=== PATIENT | female | born 1980 | race Caucasian/White ===

== ENCOUNTER 2018-11-29 15:44 | Emergency (ER) | payer BC, SELFPAY ==
[2018-11-29 15:55] VITALS: BP 108/67; PULSE 87; RESP 17; TEMP 36.3; O2SAT 96
--- NOTE | 2018-11-29 17:24 | ED.RECABL ---
HPI - Recheck/Abnormal Lab/Rx General Chief Complaint: Recheck/Abnormal Lab/Rx Stated Complaint: STATES CENTRAL LINE BLEW Time Seen by Provider: 11/29/18 17:24 Source: patient Mode of arrival: ambulatory Limitations: no limitations History of Present Illness HPI narrative: 30-year-old female nonsmoker with history of Crohn's and left anterior chest tunneled catheter presents with the report of an obvious hole in the external tubing of the catheter which occurred this morning. She has a catheter because she requires TPN due to her Crohn's and the 2nd lumen is required secondary to her need for Cipro twice daily to treat an infection on her right foot. Her catheter was placed at [facility] by their surgeon on October 25. She denies any chest pain. She is not dizzy or weak or lightheaded. She has no fever or chills Returns today for: needs IV antibiotics Symptoms since prior visit: no new symptoms Associated symptoms: none Related Data Home Medications Medication Instructions Recorded Confirmed adalimumab [Humira Pen] 1 dose SUBCUT QWEEK 11/29/18 11/29/18 alprazolam 0.5 mg PO TID 11/29/18 11/29/18 alprazolam 1.5 mg PO BEDTIME 11/29/18 11/29/18 azathioprine 250 mg PO DAILY 11/29/18 11/29/18 budesonide 9 mg PO DAILY 11/29/18 11/29/18 diphenoxylate-atropine 2 tab PO QID PRN 11/29/18 11/29/18 epinephrine 0.3 mg IM PRN PRN 11/29/18 11/29/18 famotidine 20 mg PO BID 11/29/18 11/29/18 gabapentin 1,800 mg PO BEDTIME 11/29/18 11/29/18 gabapentin 900 mg PO BID 11/29/18 11/29/18 hyoscyamine sulfate 0.125 mg SUBLINGUAL TID PRN 11/29/18 11/29/18 ondansetron 8 mg TRANSLINGUAL QID 11/29/18 11/29/18 oxycodone 10 mg PO 8XD 11/29/18 11/29/18 pantoprazole 40 mg PO DAILY 11/29/18 11/29/18 prednisone 1 mg PO DAILY 11/29/18 11/29/18 promethazine 25 mg PO TID 11/29/18 11/29/18 scopolamine base [Transderm-Scop] 1 patch TOPICAL Q3D 11/29/18 11/29/18 sertraline 200 mg PO DAILY 11/29/18 11/29/18 sumatriptan 1 spray INTRANASAL .ONCE PRN 11/29/18 11/29/18 sumatriptan succinate 25 mg PO PRN PRN 11/29/18 ursodiol 600 mg PO BID 11/29/18 11/29/18 Allergies Allergy/AdvReac Type Severity Reaction Status Date / Time bee venom protein (honey bee) Allergy Verified 11/29/18 16:04 latex Allergy Verified 11/29/18 16:04 prochlorperazine AdvReac Mild Agitated Verified 11/29/18 16:04 [From Compazine] Review of Systems Constitutional Denies chills, Denies fever(s), Denies lethargy and Denies weakness Eyes Denies change in vision, Denies eye discharge, Denies irritation and Denies loss of vision ENT Ears, Nose, Mouth, and Throat: Denies change in voice, Denies neck pain and Denies sore throat Cardiovascular Denies chest pain, Denies irregular heart rhythm, Denies lightheadedness, Denies palpitations, Denies dyspnea, Denies dyspnea on exertion and Denies orthopnea Respiratory Denies cough, Denies dyspnea, Denies dyspnea on exertion and Denies wheezing Gastrointestinal Gastrointestinal: Denies abdominal pain, Denies change in bowel habits, Denies diarrhea, Denies nausea and Denies vomiting Genitourinary Denies hematuria, Denies flank pain, Denies urinary incontinence and Denies urinary urgency Musculoskeletal Denies neck pain Integumentary/Breasts Denies pruritus, Denies erythema, Denies rash and Denies wounds Neurologic Denies confusion, Denies loss of vision and Denies weakness Psychiatric Denies anxiety, Denies confusion, Denies depression, Denies homicidal ideation and Denies suicidal ideation Endocrine Denies palpitations Hematologic/Lymphatic Denies easy bruising Allergic/Immunologic Denies wheezing PFSH Social History Smoking Status: Former smoker Social History Smoking Status: Former smoker Exam Narrative Exam Narrative: GEN: AOx3 and in mild distress EYES: Pupils are equal, round, and reactive to light and accommodation. Extraoccular muscles are intact bilaterally. There is no subconjunctival hemorrhage or exudate. CHEST: Lungs are clear to auscultation bilaterally and free of wheezes, rales, or rhonchi. Heart rate is regular rhythm, there are no murmurs, clicks, rubs, or gallops. Tunneled catheter in left anterior chest without surrounding erythema, edema or obvious external problems. There is a rather large hole in 1 of the external to ooze. There is no chest wall tenderness. ABD: Abdomen is soft and nontender. There is no guarding or rebound. Bowel sounds are normal in all 4 quadrants. There is no mass or organomegaly. EXT: Full painless ROM of all extremities with no loss of sensation or strength. SKIN: Warm, pink, and dry. No erythema or rash Initial Vital Signs Initial Vital Signs: Vital Signs Temperature 97.4 F L 11/29/18 15:55 Pulse Rate 87 11/29/18 15:55 Respiratory Rate 17 11/29/18 15:55 Blood Pressure 108/67 11/29/18 15:55 Pulse Oximetry 96 11/29/18 15:55 Course Consultations Consultation #1: Discussion with our on-call general surgeon who states that to her knowledge we do not have appropriate devices here. Requests that we call [facility] given patient history there. Called to on-call general surgeon at [facility] whom after hearing the story recommends the patient contact her surgeon's office tomorrow morning and be seen for a revision of the catheter. Peripheral IV placed so patient can administer Cipro at home tonight, she understands TPN cannot be administered Vital Signs - 8 hr 11/29/18 15:55 11/29/18 18:34 Temperature 97.4 F L Pulse Rate 87 72 Respiratory Rate 17 Blood Pressure 108/67 Blood Pressure [Right Arm] 101/54 L Pulse Oximetry 96 99 Discharge Plan Departure Patient Disposition: Home Clinical Impression: Mechanical complication of tunneled cuffed central venous catheter without port Discharge Date/Time: 11/29/18 18:42 Interventions: ED Discharge Assessment Last Done: 11/29/18 18:41 Activity Restrictions/Additional Instructions: *You have been diagnosed with [tunneled catheter problem] *What to do: * call surgical office tomorrow for follow-up, I contacted the on-call surgeon this evening and they request that you call the office tomorrow for follow up. *Return to ER if you should have any new, worsening or concerning symptoms Prescriptions: No Action sumatriptan succinate 25 mg tablet 25 mg PO PRN PRN (Reason: Migraine Headache) RF: 0 diphenoxylate-atropine 2.5-0.025 mg tablet 2 tab PO QID PRN (Reason: Diarrhea) RF: 0 azathioprine 50 mg tablet 250 mg PO DAILY RF: 0 ondansetron 8 mg tablet,disintegrating 8 mg Translingual QID RF: 0 alprazolam 0.5 mg tablet 0.5 mg PO TID RF: 0 alprazolam 0.5 mg tablet 1.5 mg PO BEDTIME RF: 0 famotidine 20 mg tablet 20 mg PO BID RF: 0 prednisone 1 mg tablet 1 mg PO DAILY RF: 0 pantoprazole 40 mg tablet,delayed release (DR/EC) 40 mg PO DAILY RF: 0 hyoscyamine sulfate 0.125 mg tablet, sublingual 0.125 mg Sublingual TID PRN (Reason: Spasms) RF: 0 promethazine 25 mg tablet 25 mg PO TID RF: 0 ursodiol 300 mg capsule 600 mg PO BID RF: 0 gabapentin 300 mg capsule 900 mg PO BID RF: 0 gabapentin 300 mg capsule 1,800 mg PO BEDTIME RF: 0 budesonide 3 mg capsule,delayed,extend.release 9 mg PO DAILY RF: 0 epinephrine 0.3 mg/0.3 mL auto-injector 0.3 mg IM PRN PRN (Reason: Allergic Reaction) RF: 0 scopolamine base [Transderm-Scop] 1 mg over 3 days patch 3 day 1 patch topical Q3D RF: 0 sumatriptan 20 mg/actuation spray,non-aerosol 1 spray Intranasal .ONCE PRN (Reason: Migraine Headache) RF: 0 sertraline 50 mg tablet 200 mg PO DAILY RF: 0 Humira Pen 40 mg/0.8 mL pen injector kit 1 dose subcut QWEEK RF: 0 oxycodone 10 mg tablet 10 mg PO 8XD RF: 0
[2018-11-29 18:34] VITALS: BP 101/54; PULSE 72; O2SAT 99
== END 2018-11-29 18:42 | disposition home or self-care (01) ==
PROVIDERS: Emergency Provider Emergency Medicine
DX: T85.9XXA Unspecified complication of internal prosthetic device, implant and graft, initial encounter (principal)
CPT/HCPCS: 99282; 99283

== ENCOUNTER → 2019-01-10 15:40 | Outpatient (ROUT) | payer OTHER, SELFPAY ==
[2019-01-10 15:50] LABS: Add Manual Diff / Slide Review NO; Basophils Absolute Auto 0 /uL (0-100); Basophils Percent Auto 0.9 % (0-2); Eosinophils Absolute Auto 100 /uL (0-450); Eosinophils Percent Auto 1.9 % (2-4); Hematocrit 25.9 % (36-46); Hemoglobin 9.1 g/dL (12.0-16.0); Lymphocytes Absolute Auto 1600 /uL (1100-4500); Mean Corpuscular Hemoglobin 36.3 PG (26-34); Mean Corpuscular Volume 103.8 fL (80-100); Monocytes Absolute Auto 100 /uL (0-900); Monocytes Percent Auto 3.9 % (3-14); Neutrophils Absolute Auto 1600 /uL (1500-7000); Neutrophils Percent Auto 46.3 % (50-75); Platelet Count 230 X10^3/uL (150-400); Red Blood Cell Count 2.49 X10^6/uL (4.0-5.2); Red Cell Distribution Width 17.3 % (11.6-14.8); White Blood Cell Count 3.4 X10^3/uL (4.5-11.0)
[2019-01-10 16:33] LABS: Alanine Aminotransferase 16 IU/L (9-52); Albumin 3.8 g/dL (3.5-5.0); Albumin Globulin Ratio 1.5 (1.0-2.8); Alkaline Phosphatase 76 U/L (38-126); Aspartate Aminotransferase 16 IU/L (14-36); Bilirubin Total 0.6 mg/dL (0.2-1.3); Blood Urea Nitrogen 9 mg/dL (7-17); Calcium 8.5 mg/dL (8.4-10.2); Carbon Dioxide 26 mmol/L (22-32); Chloride 106 mmol/L (98-107); Estimated Glomerular Filt Rate > 60.0 mL/min (>60); Globulin 2.6 g/dL (1.7-4.1); Glucose 83 mg/dL (70-100); HEMOLYSIS < 15 (0-50); Magnesium 1.6 mg/dL (1.6-2.3); Phosphorous 3.7 mg/dL (2.5-4.5); Potassium 3.5 mmol/L (3.4-5.1); Sodium 140 mmol/L (137-145); Total Protein 6.4 g/dL (6.3-8.2)
== END ==
PROVIDERS: Visit Provider Family Medicine
DX: K50.00 Crohn's disease of small intestine without complications (principal); B95.62 Methicillin resistant Staphylococcus aureus infection as the cause of diseases classified elsewhere; A09 Infectious gastroenteritis and colitis, unspecified
CPT/HCPCS: 80053; 83735; 84100; 85025

== ENCOUNTER → 2019-01-25 14:17 | Outpatient (CLI) | payer BC, SELFPAY ==
[2019-01-25 15:31] LABS: Add Manual Diff / Slide Review NO; Basophils Absolute Auto 0 /uL (0-100); Basophils Percent Auto 0.6 % (0-2); Eosinophils Absolute Auto 0 /uL (0-450); Eosinophils Percent Auto 1.4 % (2-4); Hematocrit 29.6 % (36-46); Hemoglobin 10.3 g/dL (12.0-16.0); Lymphocytes Absolute Auto 1800 /uL (1100-4500); Lymphocytes Percent Auto 52.5 % (25-40); Mean Corpuscular HGB Conc 34.8 % (30-36); Mean Corpuscular Hemoglobin 36.7 PG (26-34); Mean Corpuscular Volume 105.7 fL (80-100); Monocytes Absolute Auto 100 /uL (0-900); Monocytes Percent Auto 3.2 % (3-14); Neutrophils Absolute Auto 1500 /uL (1500-7000); Neutrophils Percent Auto 42.3 % (50-75); Platelet Count 187 X10^3/uL (150-400); Red Blood Cell Count 2.81 X10^6/uL (4.0-5.2); Red Cell Distribution Width 17.1 % (11.6-14.8); White Blood Cell Count 3.5 X10^3/uL (4.5-11.0)
[2019-01-25 15:50] LABS: HEMOLYSIS < 15 (0-50); Iron 154 ug/dL (37-170)
[2019-01-25 15:51] LABS: Erythrocyte Sedimentation Rate 34 MM/HR (0-20)
[2019-01-25 15:57] LABS: C-Reactive Protein Quant < 0.5 mg/dL (<1.0)
[2019-01-25 16:04] LABS: Percent Iron Saturation 63 % (15-50); Total Iron Binding Capacity 244 ug/dL (265-497); Transferrin 197 mg/dL (206-381)
[2019-01-26 10:22] LABS: Alanine Aminotransferase 21 IU/L (9-52); Albumin 4.4 g/dL (3.5-5.0); Albumin Globulin Ratio 1.6 (1.0-2.8); Alkaline Phosphatase 84 U/L (38-126); Aspartate Aminotransferase 21 IU/L (14-36); BUN Creatinine Ratio 15.7 (6-22); Bilirubin Total 0.8 mg/dL (0.2-1.3); Blood Urea Nitrogen 11 mg/dL (7-17); Calcium 9.3 mg/dL (8.4-10.2); Carbon Dioxide 25 mmol/L (22-32); Chloride 103 mmol/L (98-107); Estimated Glomerular Filt Rate > 60.0 mL/min (>60); Globulin 2.8 g/dL (1.7-4.1); Glucose 91 mg/dL (70-100); HEMOLYSIS < 15 (0-50); Potassium 3.9 mmol/L (3.4-5.1); Sodium 141 mmol/L (137-145); Total Protein 7.2 g/dL (6.3-8.2)
[2019-01-26 11:09] LABS: Vitamin B12 234 pg/mL (239-931)
[2019-01-30 20:01] LABS: Calprotectin, Stool 31.4 mcg/g
[2019-01-31 01:03] LABS: Methylmalonic Acid 312 nmol/L (87-318)
== END ==
PROVIDERS: PCP Family Medicine; Visit Provider Internal Medicine Gastroenterology
DX: D53.9 Nutritional anemia, unspecified (principal); L97.519 Non-pressure chronic ulcer of other part of right foot with unspecified severity; K52.9 Noninfective gastroenteritis and colitis, unspecified
CPT/HCPCS: 36415; 80053; 82607; 82728; 83540; 83550; 83921; 83993; 85025; 85651; 86140

== ENCOUNTER 2019-03-14 10:42 | Observation (INO) | payer BC, SELFPAY ==
[2019-03-14] VITALS (17 sets, daily range): BP systolic 98–128; BP diastolic 45–76; PULSE 54–83; RESP 11–24; TEMP 36.1–37.2; O2SAT 97–100; BMI 28.0
--- NOTE | 2019-03-14 11:04 | ED.GENADULT ---
HPI - General Adult General Chief complaint: Dizziness Stated complaint: Low H&H Time Seen by Provider: 03/14/19 10:44 Source: patient and old records reviewed Mode of arrival: ambulatory Limitations: no limitations History of Present Illness HPI narrative: This is a 38-year-old female was sent to the emergency department for low hemoglobin. She had her labs drawn yesterday and was referred to have a hemoglobin of 5 with hematocrit of 15. Patient states that she has had 2 iron infusions as well as 3 shots of B12 over the last several weeks. She has a Ayoub catheter and receives TPN secondary to Crohn's and bowel stricture as well as gastroparesis. Patient has not noticed any rectal bleeding, no melena or bright red blood, no hematuria, no other sources of bleeding or vaginal bleeding. Patient does note that she sometimes bruises very easily. She has felt significantly weaker and more fatigued over the last 5 days. She gets a little bit lightheaded when she is up and ambulatory and performing actions. She has had some slight nausea which is chronic. No vomiting. She denies any chest pain pressure or shortness of breath. She had a supply person the [facility] but has been transitioning her care to Dr. Parmar who is a supply person here [facility] and originally through [place]. She had a port which had some complications and was replaced with a Ayoub catheter on the other side of her chest. Related Data Home Medications Medication Instructions Recorded Confirmed adalimumab [Humira Pen] 1 dose SUBCUT QWEEK 11/29/18 03/14/19 alprazolam 0.5 mg PO TID 11/29/18 03/14/19 alprazolam 1.5 mg PO BEDTIME 11/29/18 03/14/19 azathioprine 250 mg PO DAILY 11/29/18 03/14/19 budesonide 9 mg PO DAILY 11/29/18 03/14/19 diphenoxylate-atropine 2 tab PO QID PRN 11/29/18 03/14/19 epinephrine 0.3 mg IM PRN PRN 11/29/18 03/14/19 gabapentin 1,800 mg PO BEDTIME 11/29/18 03/14/19 gabapentin 900 mg PO BID 11/29/18 03/14/19 ondansetron 8 mg TRANSLINGUAL QID 11/29/18 03/14/19 oxycodone 10 mg PO 8XD 11/29/18 03/14/19 pantoprazole 40 mg PO DAILY 11/29/18 03/14/19 prednisone 1 mg PO DAILY 11/29/18 03/14/19 promethazine 25 mg PO TID 11/29/18 03/14/19 scopolamine base [Transderm-Scop] 1 patch TOPICAL Q3D 11/29/18 03/14/19 sertraline 200 mg PO DAILY 11/29/18 03/14/19 sumatriptan 1 spray INTRANASAL .ONCE PRN 11/29/18 03/14/19 sumatriptan succinate 25 mg PO PRN PRN 11/29/18 03/14/19 ursodiol 600 mg PO BID 11/29/18 03/14/19 cyanocobalamin (vitamin B-12) 1 ml IM QWEEK 03/14/19 03/14/19 famotidine 20 mg PO BID 03/14/19 03/14/19 Allergies Allergy/AdvReac Type Severity Reaction Status Date / Time bee venom protein (honey bee) Allergy Verified 03/14/19 10:51 latex Allergy Verified 03/14/19 10:51 prochlorperazine AdvReac Mild Agitated Verified 03/14/19 10:51 [From Compazine] Review of Systems Review of Systems ROS Unobtainable: All systems reviewed & are unremarkable except as noted in HPI and below PFSH Medical History (Updated 03/14/19 @ 16:58 by Dutch Malloy MD) Crohns disease (Chronic) Surgical History (Updated 03/14/19 @ 16:58 by Dutch Malloy MD) History of bowel resection (Chronic) Hx of appendectomy (Chronic) Social History Smoking Status: Former smoker Social History Smoking Status: Former smoker Exam Narrative Exam Narrative: GEN: Well-nourished, significantly pale female, alert and oriented x 3, patient appears to be in no acute distress. HEENT: Atraumatic, pupils are equal round reactive to light, extraocular movements are intact, nares are clear, TMs are clear with no fluid, with conjunctival pallor. Throat is clear without any exudates, erythema, tonsillar enlargement or uvular deviation HEART: Regular rate and rhythm without murmur, clicks, rubs. Pulses are equal in upper and lower extremities LUNGS:Lungs clear to auscultation, no wheezes, rales, crackles, chest moves symmetrically ABD:bowel sounds normal, soft, non-tender, no guarding, rebound, rigidity, no masses noted, no hepatosplenomegaly :No CVA tenderness MSCL: Non-tender, full range of motion, normal gait NEURO:CN 2-12 intact, sensation normal SKIN: pale, no petechiae or ecchymosis noted. Patient does have an ulceration on her left great toe that is about cm happened size is into the subcutaneous tissue but no bone is noted. There appears to be pink granulation tissue, there is no surrounding erythema, there is no foul odor. There is a scant amount of blood but no purulent or serosanguineous discharge is noted. Patient has bandages fairly dry when she removed it. The toe looks slightly swollen in comparison to the opposite foot. She also has a little bit of skin breakdown on the dorsal side of the toe just at the crease where the tape was touching her foot. Initial Vital Signs Initial Vital Signs: Vital Signs Temperature 98.6 F 03/14/19 10:44 Pulse Rate 83 03/14/19 10:44 Respiratory Rate 16 03/14/19 10:44 Blood Pressure 113/47 L 03/14/19 10:44 Pulse Oximetry 98 03/14/19 10:44 Course Orders Ordered: ED Orders 03/14/19 11:07 Complete Blood Count AUTO DIFF Stat Comprehensive Metabolic Panel Stat Folate Stat Iron Stat Packed Cells Stat Partial Thromboplastin Time Stat Pathologist Review (for CBC) Stat Prothrombin Time INR Stat Reticulocyte Count, Percent Stat Thyroid Stimulating Hormone Stat Type and Screen Stat Vitamin B12 Stat 03/14/19 14:44 Education, smoking cessation ONGOING 03/14/19 16:53 Consult to Dietitian, Adult Routine 03/15/19 05:00 Basic Metabolic Panel DAILY Comprehensive Metabolic Panel DAILY Magnesium DAILY Phosphorous DAILY 03/16/19 05:00 Basic Metabolic Panel DAILY Comprehensive Metabolic Panel DAILY Magnesium DAILY Phosphorous DAILY 03/17/19 05:00 Basic Metabolic Panel DAILY Magnesium DAILY Phosphorous DAILY Acetaminophen (Tylenol) 650 mg PO Q6HR PRN PRN Reason: As Needed for Fever/Mild Pain Alprazolam (Xanax) 0.5 mg PO TID [facility] Last Admin: 03/14/19 16:20 Dose: Not Given Alprazolam (Xanax) 1.5 mg PO BEDTIME [facility] Gabapentin (Neurontin) 1,800 mg PO BEDTIME [facility] Gabapentin (Neurontin) 900 mg PO 0900,1500 [facility] Last Admin: 03/14/19 16:20 Dose: Not Given Ondansetron HCl (Zofran) 4 mg IV Q8HR PRN PRN Reason: Nausea And Vomiting Promethazine HCl (Phenergan) 25 mg PO TID [facility] Last Admin: 03/14/19 16:21 Dose: Not Given Sertraline HCl (Zoloft) 200 mg PO DAILY [facility] Sumatriptan Succinate (Imitrex) 25 mg PO PRN PRN PRN Reason: Migraine Headache Ursodiol (Actigall) 600 mg PO BID [facility] Discontinued Medications Potassium Chloride (Potassium Chloride) 40 meq PO NOW ONE Stop: 03/14/19 11:54 Last Admin: 03/14/19 12:17 Dose: 40 meq Vital Signs - 8 hr 03/14/19 10:44 03/14/19 11:32 03/14/19 12:00 Temperature 98.6 F Pulse Rate 83 78 79 Respiratory Rate 16 11 L 17 Blood Pressure 113/47 L Blood Pressure [Left Arm] 107/49 L 98/45 L Pulse Oximetry 98 98 99 03/14/19 12:19 03/14/19 12:30 03/14/19 12:33 Temperature 97.5 F L 98.6 F Pulse Rate 79 79 81 Respiratory Rate 24 17 16 Blood Pressure 99/46 L 109/58 L Blood Pressure [Left Arm] 99/46 L Pulse Oximetry 98 03/14/19 12:38 03/14/19 13:00 03/14/19 14:03 Temperature 98.2 F 99.0 F Pulse Rate 73 80 74 Respiratory Rate 16 18 18 Blood Pressure 112/55 L 100/63 Blood Pressure [Left Arm] 105/60 Pulse Oximetry 97 99 03/14/19 14:50 Temperature 98.2 F Pulse Rate 73 Respiratory Rate 16 Blood Pressure 112/55 L Blood Pressure [Left Arm] Pulse Oximetry 99 Medical Decision Making Lab Data Lab results reviewed: Yes I reviewed the patient's lab results. Result diagrams: 03/14/19 11:07 03/14/19 11:07 Lab Results 03/14/19 03/14/19 03/14/19 Range/Units 11:07 11:07 11:07 WBC 1.8 L* (4.5-11.0) X10^3/uL RBC 1.20 L (4.0-5.2) X10^6/uL Hgb 4.7 L* (12.0-16.0) g/dL Hct 13.6 L* (36-46) % MCV 113.6 H (80-100) fL MCH 39.3 H (26-34) PG MCHC 34.6 (30-36) % RDW 21.4 H (11.6-14.8) % Plt Count 120 L (150-400) X10^3/uL Neut % (Auto) Not Reportable Lymph % (Auto) Not Reportable [place] % (Auto) Not Reportable Eos % (Auto) Not Reportable Baso % (Auto) Not Reportable Lymph # (Auto) Not Reportable [place] # (Auto) Not Reportable Baso # (Auto) Not Reportable Total Counted 50 Seg Neutrophils % 44.0 (38-70) % Band Neutrophils % 4.0 (3-7) % Lymphocytes % (Manual) 44.0 (25-45) % Atypical Lymphs % 2.0 H ( - 0) % Monocytes % (Manual) 2.0 (2-11) % Eosinophils % (Manual) 4.0 (2-4) % Neutrophils # (Manual) 864 L (2654-6708) /uL RBC Morphology See below Anisocytosis 3+ H Macrocytosis 3+ H Tear Drop Cells 1+ H Ovalocytes 1+ H Percent Retic (1.06-2.63) % PT 12.0 (10.1-12.7) SECONDS INR 1.0 (0.9-1.3) APTT 34 (26.4-36.2) SECONDS Sodium 139 (137-145) mmol/L Potassium 3.1 L (3.4-5.1) mmol/L Chloride 107 (98-107) mmol/L Carbon Dioxide 26 (22-32) mmol/L BUN 12 (7-17) mg/dL Creatinine 0.50 L (0.52-1.04) mg/dL Estimated GFR > 60.0 (>60) mL/min BUN/Creatinine Ratio 24.0 H (6-22) Glucose 91 (70-100) mg/dL Calcium 7.8 L (8.4-10.2) mg/dL Iron (37-170) ug/dL Total Bilirubin 0.5 (0.2-1.3) mg/dL AST 18 (14-36) IU/L ALT 14 (9-52) IU/L Alkaline Phosphatase 89 (38-126) U/L Total Protein 5.2 L (6.3-8.2) g/dL Albumin 2.8 L (3.5-5.0) g/dL Globulin 2.4 (1.7-4.1) g/dL Albumin/Globulin Ratio 1.2 (1.0-2.8) Vitamin B12 (239-931) pg/mL Folate (2.76-20.0) ng/mL TSH (0.47-4.68) uIU/mL Blood Type Antibody Screen Crossmatch 03/14/19 03/14/19 03/14/19 Range/Units 11:07 11:07 11:07 WBC (4.5-11.0) X10^3/uL RBC (4.0-5.2) X10^6/uL Hgb (12.0-16.0) g/dL Hct (36-46) % MCV (80-100) fL MCH (26-34) PG MCHC (30-36) % RDW (11.6-14.8) % Plt Count (150-400) X10^3/uL Neut % (Auto) Lymph % (Auto) [place] % (Auto) Eos % (Auto) Baso % (Auto) Lymph # (Auto) [place] # (Auto) Baso # (Auto) Total Counted Seg Neutrophils % (38-70) % Band Neutrophils % (3-7) % Lymphocytes % (Manual) (25-45) % Atypical Lymphs % ( - 0) % Monocytes % (Manual) (2-11) % Eosinophils % (Manual) (2-4) % Neutrophils # (Manual) (9931-9432) /uL RBC Morphology Anisocytosis Macrocytosis Tear Drop Cells Ovalocytes Percent Retic (1.06-2.63) % PT (10.1-12.7) SECONDS INR (0.9-1.3) APTT (26.4-36.2) SECONDS Sodium (137-145) mmol/L Potassium (3.4-5.1) mmol/L Chloride (98-107) mmol/L Carbon Dioxide (22-32) mmol/L BUN (7-17) mg/dL Creatinine (0.52-1.04) mg/dL Estimated GFR (>60) mL/min BUN/Creatinine Ratio (6-22) Glucose (70-100) mg/dL Calcium (8.4-10.2) mg/dL Iron 95 (37-170) ug/dL Total Bilirubin (0.2-1.3) mg/dL AST (14-36) IU/L ALT (9-52) IU/L Alkaline Phosphatase (38-126) U/L Total Protein (6.3-8.2) g/dL Albumin (3.5-5.0) g/dL Globulin (1.7-4.1) g/dL Albumin/Globulin Ratio (1.0-2.8) Vitamin B12 927 (239-931) pg/mL Folate 5.0 (2.76-20.0) ng/mL TSH 2.50 (0.47-4.68) uIU/mL Blood Type AB Positive Antibody Screen Negative Crossmatch See Detail 03/14/19 Range/Units 11:07 WBC (4.5-11.0) X10^3/uL RBC (4.0-5.2) X10^6/uL Hgb (12.0-16.0) g/dL Hct (36-46) % MCV (80-100) fL MCH (26-34) PG MCHC (30-36) % RDW (11.6-14.8) % Plt Count (150-400) X10^3/uL Neut % (Auto) Lymph % (Auto) [place] % (Auto) Eos % (Auto) Baso % (Auto) Lymph # (Auto) [place] # (Auto) Baso # (Auto) Total Counted Seg Neutrophils % (38-70) % Band Neutrophils % (3-7) % Lymphocytes % (Manual) (25-45) % Atypical Lymphs % ( - 0) % Monocytes % (Manual) (2-11) % Eosinophils % (Manual) (2-4) % Neutrophils # (Manual) (2580-4421) /uL RBC Morphology Anisocytosis Macrocytosis Tear Drop Cells Ovalocytes Percent Retic 2.1 (1.06-2.63) % PT (10.1-12.7) SECONDS INR (0.9-1.3) APTT (26.4-36.2) SECONDS Sodium (137-145) mmol/L Potassium (3.4-5.1) mmol/L Chloride (98-107) mmol/L Carbon Dioxide (22-32) mmol/L BUN (7-17) mg/dL Creatinine (0.52-1.04) mg/dL Estimated GFR (>60) mL/min BUN/Creatinine Ratio (6-22) Glucose (70-100) mg/dL Calcium (8.4-10.2) mg/dL Iron (37-170) ug/dL Total Bilirubin (0.2-1.3) mg/dL AST (14-36) IU/L ALT (9-52) IU/L Alkaline Phosphatase (38-126) U/L Total Protein (6.3-8.2) g/dL Albumin (3.5-5.0) g/dL Globulin (1.7-4.1) g/dL Albumin/Globulin Ratio (1.0-2.8) Vitamin B12 (239-931) pg/mL Folate (2.76-20.0) ng/mL TSH (0.47-4.68) uIU/mL Blood Type Antibody Screen Crossmatch [facility] Narrative Medical decision making narrative: Patient's labs were repeated and hemoglobin is 4.7 with a crit of 13.6, count is 1.8 with platelets of 120, spoke with lab peripheral smear is pending.retic is 2.1, potassium was 3.1, creatinine BUN are normal with no major electrolyte abnormalities. Liver enzymes are normal range, patient has low protein and albumin with B12 and folate pending TSH is 2.5. I spoke with Dr. Malloy from Hematology-Oncology, he would recommend potentially 3-4 units of PRBCs and patient likely needs a bone marrow biopsy. Spoke with Dr. Welsh accepts for observation. After speaking with the hospitalist, patient did inform me that she was on vancomycin IV and prior to that ciprofloxacin for a wound on her great toe on the left foot. Patient states that the wound was improving but is slowly started to increase in size. She finished the IV antibiotics about 3-4 weeks ago through the IV infusions clinic. I did call to update the hospitalist and asked her to also inform them. Patient's toe does have a ulceration although it does not look acutely infected at this time. Discharge Plan Departure Patient Disposition: Admitted as Observation Clinical Impression: Symptomatic anemia, Pancytopenia Discharge Date/Time: 03/14/19 13:10 Interventions: ED Discharge Assessment Last Done: 03/14/19 13:09 Referrals: Murphy Pete MD [Primary Care Provider] - Admit Date/Time: 03/14/19 12:58 Admit Provider: Syd Welsh
--- NOTE | 2019-03-14 11:09 | ED_ITS ---
HPI - General Adult General Chief complaint: Dizziness Stated complaint: Low H&H Time Seen by Provider: 03/14/19 10:44 Source: patient and old records reviewed Mode of arrival: ambulatory Limitations: no limitations History of Present Illness HPI narrative: This is a 38-year-old female was sent to the emergency department for low hemoglobin. She had her labs drawn yesterday and was referred to have a hemoglobin of 5 with hematocrit of 15. Patient states that she has had 2 iron infusions as well as 3 shots of B12 over the last several weeks. She has a Ayoub catheter and receives TPN secondary to Crohn's and bowel stricture as well as gastroparesis. Patient has not noticed any rectal bleeding, no melena o r bright red blood, no hematuria, no other sources of bleeding or vaginal bleeding. Patient does note that she sometimes bruises very easily. She has felt significantly weaker and more fatigued over the last 5 days. She gets a little bit lightheaded when she is up and ambulatory and performing actions. She has had some slight nausea which is chronic. No vomiting. She denies any chest pain pressure or shortness of breath. She had a is consultant the [facility] but has been transitioning her care to Dr. Parmar who is a is consultant here [facility] and originally through [place]. She had a port which had some complications and was replaced with a Ayoub catheter on the other side of her chest. Related Data Home Medications Medication Instructions Recorded Confirmed adalimumab [Humira Pen] 1 dose SUBCUT QWEEK 11/29/18 03/14/19 alprazolam 0.5 mg PO TID 11/29/18 03/14/19 alprazolam 1.5 mg PO BEDTIME 11/29/18 03/14/19 azathioprine 250 mg PO DAILY 11/29/18 03/14/19 budesonide 9 mg PO DAILY 11/29/18 03/14/19 diphenoxylate-atropine 2 tab PO QID PRN 11/29/18 03/14/19 epinephrine 0.3 mg IM PRN PRN 11/29/18 03/14/19 gabapentin 1,800 mg PO BEDTIME 11/29/18 03/14/19 gabapentin 900 mg PO BID 11/29/18 03/14/19 ondansetron 8 mg TRANSLINGUAL QID 11/29/18 03/14/19 oxycodone 10 mg PO 8XD 11/29/18 03/14/19 pantoprazole 40 mg PO DAILY 11/29/18 03/14/19 prednisone 1 mg PO DAILY 11/29/18 03/14/19 promethazine 25 mg PO TID 11/29/18 03/14/19 scopolamine base [Transderm-Scop] 1 patch TOPICAL Q3D 11/29/18 03/14/19 sertraline 200 mg PO DAILY 11/29/18 03/14/19 sumatriptan 1 spray INTRANASAL .ONCE PRN 11/29/18 03/14/19 sumatriptan succinate 25 mg PO PRN PRN 11/29/18 03/14/19 ursodiol 600 mg PO BID 11/29/18 03/14/19 cyanocobalamin (vitamin B-12) 1 ml IM QWEEK 03/14/19 03/14/19 famotidine 20 mg PO BID 03/14/19 03/14/19 Allergies Allergy/AdvReac Type Severity Reaction Status Date / Time bee venom protein (honey bee) Allergy Verified 03/14/19 10:51 latex Allergy Verified 03/14/19 10:51 prochlorperazine AdvReac Mild Agitated Verified 03/14/19 10:51 [From Compazine] Review of Systems Review of Systems ROS Unobtainable: All systems reviewed & are unremarkable except as noted in HPI and below PFSH Medical History (Updated 03/14/19 @ 16:58 by Dutch Malloy MD) Crohns disease (Chronic) Surgical History (Updated 03/14/19 @ 16:58 by Dutch Malloy MD) History of bowel resection (Chronic) Hx of appendectomy (Chronic) Social History Smoking Status: Former smoker Social History Smoking Status: Former smoker Exam Narrative Exam Narrative: GEN: Well-nourished, significantly pale female, alert and oriented x 3, patient appears to be in no acute distress. HEENT: Atraumatic, pupils are equal round reactive to light, extraocular movements are intact, nares are clear, TMs are clear with no fluid, with conjunctival pallor. Throat is clear without any exudates, erythema, tonsillar enlargement or uvular deviation HEART: Regular rate and rhythm without murmur, clicks, rubs. Pulses are equal in upper and lower extremities LUNGS:Lungs clear to auscultation, no wheezes, rales, crackles, chest moves symmetrically ABD:bowel sounds normal, soft, non-tender, no guarding, rebound, rigidity, no masses noted, no hepatosplenomegaly :No CVA tenderness MSCL: Non-tender, full range of motion, normal gait NEURO:CN 2-12 intact, sensation normal SKIN: pale, no petechiae or ecchymosis noted. Patient does have an ulceration on her left great toe that is about cm happened size is into the subcutaneous tissue but no bone is noted. There appears to be pink granulation tissue, there is no surrounding erythema, there is no foul odor. There is a scant amount of blood but no purulent or serosanguineous discharge is noted. Patient has bandages fairly dry when she removed it. The toe looks slightly swollen in comparison to the opposite foot. She also has a little bit of skin breakdown on the dorsal side of the toe just at the crease where the tape was touching her foot. Initial Vital Signs Initial Vital Signs: Vital Signs Temperature 98.6 F 03/14/19 10:44 Pulse Rate 83 03/14/19 10:44 Respiratory Rate 16 03/14/19 10:44 Blood Pressure 113/47 L 03/14/19 10:44 Pulse Oximetry 98 03/14/19 10:44 Course Orders Ordered: ED Orders 03/14/19 11:07 Complete Blood Count AUTO DIFF Stat Comprehensive Metabolic Panel Stat Folate Stat Iron Stat Packed Cells Stat Partial Thromboplastin Time Stat Pathologist Review (for CBC) Stat Prothrombin Time INR Stat Reticulocyte Count, Percent Stat Thyroid Stimulating Hormone Stat Type and Screen Stat Vitamin B12 Stat 03/14/19 14:44 Education, smoking cessation ONGOING 03/14/19 16:53 Consult to Dietitian, Adult Routine 03/15/19 05:00 Basic Metabolic Panel DAILY Comprehensive Metabolic Panel DAILY Magnesium DAILY Phosphorous DAILY 03/16/19 05:00 Basic Metabolic Panel DAILY Comprehensive Metabolic Panel DAILY Magnesium DAILY Phosphorous DAILY 03/17/19 05:00 Basic Metabolic Panel DAILY Magnesium DAILY Phosphorous DAILY Acetaminophen (Tylenol) 650 mg PO Q6HR PRN PRN Reason: As Needed for Fever/Mild Pain Alprazolam (Xanax) 0.5 mg PO TID [facility] Last Admin: 03/14/19 16:20 Dose: Not Given Alprazolam (Xanax) 1.5 mg PO BEDTIME [facility] Gabapentin (Neurontin) 1,800 mg PO BEDTIME [facility] Gabapentin (Neurontin) 900 mg PO 0900,1500 [facility] Last Admin: 03/14/19 16:20 Dose: Not Given Ondansetron HCl (Zofran) 4 mg IV Q8HR PRN PRN Reason: Nausea And Vomiting Promethazine HCl (Phenergan) 25 mg PO TID [facility] Last Admin: 03/14/19 16:21 Dose: Not Given Sertraline HCl (Zoloft) 200 mg PO DAILY [facility] Sumatriptan Succinate (Imitrex) 25 mg PO PRN PRN PRN Reason: Migraine Headache Ursodiol (Actigall) 600 mg PO BID [facility] Discontinued Medications Potassium Chloride (Potassium Chloride) 40 meq PO NOW ONE Stop: 03/14/19 11:54 Last Admin: 03/14/19 12:17 Dose: 40 meq Vital Signs - 8 hr 03/14/19 10:44 03/14/19 11:32 03/14/19 12:00 Temperature 98.6 F Pulse Rate 83 78 79 Respiratory Rate 16 11 L 17 Blood Pressure 113/47 L Blood Pressure [Left Arm] 107/49 L 98/45 L Pulse Oximetry 98 98 99 03/14/19 12:19 03/14/19 12:30 03/14/19 12:33 Temperature 97.5 F L 98.6 F Pulse Rate 79 79 81 Respiratory Rate 24 17 16 Blood Pressure 99/46 L 109/58 L Blood Pressure [Left Arm] 99/46 L Pulse Oximetry 98 03/14/19 12:38 03/14/19 13:00 03/14/19 14:03 Temperature 98.2 F 99.0 F Pulse Rate 73 80 74 Respiratory Rate 16 18 18 Blood Pressure 112/55 L 100/63 Blood Pressure [Left Arm] 105/60 Pulse Oximetry 97 99 03/14/19 14:50 Temperature 98.2 F Pulse Rate 73 Respiratory Rate 16 Blood Pressure 112/55 L Blood Pressure [Left Arm] Pulse Oximetry 99 Medical Decision Making Lab Data Lab results reviewed: Yes I reviewed the patient's lab results. Result diagrams: 03/14/19 11:07 03/14/19 11:07 Lab Results 03/14/19 03/14/19 03/14/19 Range/Units 11:07 11:07 11:07 WBC 1.8 L* (4.5-11.0) X10^3/uL RBC 1.20 L (4.0-5.2) X10^6/uL Hgb 4.7 L* (12.0-16.0) g/dL Hct 13.6 L* (36-46) % MCV 113.6 H (80-100) fL MCH 39.3 H (26-34) PG MCHC 34.6 (30-36) % RDW 21.4 H (11.6-14.8) % Plt Count 120 L (150-400) X10^3/uL Neut % (Auto) Not Reportable Lymph % (Auto) Not Reportable Creek % (Auto) Not Reportable Eos % (Auto) Not Reportable Baso % (Auto) Not Reportable Lymph # (Auto) Not Reportable Creek # (Auto) Not Reportable Baso # (Auto) Not Reportable Total Counted 50 Seg Neutrophils % 44.0 (38-70) % Band Neutrophils % 4.0 (3-7) % Lymphocytes % (Manual) 44.0 (25-45) % Atypical Lymphs % 2.0 H ( - 0) % Monocytes % (Manual) 2.0 (2-11) % Eosinophils % (Manual) 4.0 (2-4) % Neutrophils # (Manual) 864 L (7514-1421) /uL RBC Morphology See below Anisocytosis 3+ H Macrocytosis 3+ H Tear Drop Cells 1+ H Ovalocytes 1+ H Percent Retic (1.06-2.63) % PT 12.0 (10.1-12.7) SECONDS INR 1.0 (0.9-1.3) APTT 34 (26.4-36.2) SECONDS Sodium 139 (137-145) mmol/L Potassium 3.1 L (3.4-5.1) mmol/L Chloride 107 (98-107) mmol/L Carbon Dioxide 26 (22-32) mmol/L BUN 12 (7-17) mg/dL Creatinine 0.50 L (0.52-1.04) mg/dL Estimated GFR > 60.0 (>60) mL/min BUN/Creatinine Ratio 24.0 H (6-22) Glucose 91 (70-100) mg/dL Calcium 7.8 L (8.4-10.2) mg/dL Iron (37-170) ug/dL Total Bilirubin 0.5 (0.2-1.3) mg/dL AST 18 (14-36) IU/L ALT 14 (9-52) IU/L Alkaline Phosphatase 89 (38-126) U/L Total Protein 5.2 L (6.3-8.2) g/dL Albumin 2.8 L (3.5-5.0) g/dL Globulin 2.4 (1.7-4.1) g/dL Albumin/Globulin Ratio 1.2 (1.0-2.8) Vitamin B12 (239-931) pg/mL Folate (2.76-20.0) ng/mL TSH (0.47-4.68) uIU/mL Blood Type Antibody Screen Crossmatch 03/14/19 03/14/19 03/14/19 Range/Units 11:07 11:07 11:07 WBC (4.5-11.0) X10^3/uL RBC (4.0-5.2) X10^6/uL Hgb (12.0-16.0) g/dL Hct (36-46) % MCV (80-100) fL MCH (26-34) PG MCHC (30-36) % RDW (11.6-14.8) % Plt Count (150-400) X10^3/uL Neut % (Auto) Lymph % (Auto) Creek % (Auto) Eos % (Auto) Baso % (Auto) Lymph # (Auto) Creek # (Auto) Baso # (Auto) Total Counted Seg Neutrophils % (38-70) % Band Neutrophils % (3-7) % Lymphocytes % (Manual) (25-45) % Atypical Lymphs % ( - 0) % Monocytes % (Manual) (2-11) % Eosinophils % (Manual) (2-4) % Neutrophils # (Manual) (6096-6749) /uL RBC Morphology Anisocytosis Macrocytosis Tear Drop Cells Ovalocytes Percent Retic (1.06-2.63) % PT (10.1-12.7) SECONDS INR (0.9-1.3) APTT (26.4-36.2) SECONDS Sodium (137-145) mmol/L Potassium (3.4-5.1) mmol/L Chloride (98-107) mmol/L Carbon Dioxide (22-32) mmol/L BUN (7-17) mg/dL Creatinine (0.52-1.04) mg/dL Estimated GFR (>60) mL/min BUN/Creatinine Ratio (6-22) Glucose (70-100) mg/dL Calcium (8.4-10.2) mg/dL Iron 95 (37-170) ug/dL Total Bilirubin (0.2-1.3) mg/dL AST (14-36) IU/L ALT (9-52) IU/L Alkaline Phosphatase (38-126) U/L Total Protein (6.3-8.2) g/dL Albumin (3.5-5.0) g/dL Globulin (1.7-4.1) g/dL Albumin/Globulin Ratio (1.0-2.8) Vitamin B12 927 (239-931) pg/mL Folate 5.0 (2.76-20.0) ng/mL TSH 2.50 (0.47-4.68) uIU/mL Blood Type AB Positive Antibody Screen Negative Crossmatch See Detail 03/14/19 Range/Units 11:07 WBC (4.5-11.0) X10^3/uL RBC (4.0-5.2) X10^6/uL Hgb (12.0-16.0) g/dL Hct (36-46) % MCV (80-100) fL MCH (26-34) PG MCHC (30-36) % RDW (11.6-14.8) % Plt Count (150-400) X10^3/uL Neut % (Auto) Lymph % (Auto) Creek % (Auto) Eos % (Auto) Baso % (Auto) Lymph # (Auto) Creek # (Auto) Baso # (Auto) Total Counted Seg Neutrophils % (38-70) % Band Neutrophils % (3-7) % Lymphocytes % (Manual) (25-45) % Atypical Lymphs % ( - 0) % Monocytes % (Manual) (2-11) % Eosinophils % (Manual) (2-4) % Neutrophils # (Manual) (8270-4000) /uL RBC Morphology Anisocytosis Macrocytosis Tear Drop Cells Ovalocytes Percent Retic 2.1 (1.06-2.63) % PT (10.1-12.7) SECONDS INR (0.9-1.3) APTT (26.4-36.2) SECONDS Sodium (137-145) mmol/L Potassium (3.4-5.1) mmol/L Chloride (98-107) mmol/L Carbon Dioxide (22-32) mmol/L BUN (7-17) mg/dL Creatinine (0.52-1.04) mg/dL Estimated GFR (>60) mL/min BUN/Creatinine Ratio (6-22) Glucose (70-100) mg/dL Calcium (8.4-10.2) mg/dL Iron (37-170) ug/dL Total Bilirubin (0.2-1.3) mg/dL AST (14-36) IU/L ALT (9-52) IU/L Alkaline Phosphatase (38-126) U/L Total Protein (6.3-8.2) g/dL Albumin (3.5-5.0) g/dL Globulin (1.7-4.1) g/dL Albumin/Globulin Ratio (1.0-2.8) Vitamin B12 (239-931) pg/mL Folate (2.76-20.0) ng/mL TSH (0.47-4.68) uIU/mL Blood Type Antibody Screen Crossmatch [facility] Narrative Medical decision making narrative: Patient's labs were repeated and hemoglobin is 4.7 with a crit of 13.6, count is 1.8 with platelets of 120, spoke with lab peripheral smear is pending.retic is 2.1, potassium was 3.1, creatinine BUN are normal with no major electrolyte abnormalities. Liver enzymes are normal range, patient has low protein and albumin with B12 and folate pending TSH is 2.5. I spoke with Dr. Malloy from Hematology-Oncology, he would recommend potentially 3-4 units of PRBCs and patient likely needs a bone marrow biopsy. Spoke with Dr. Welsh accepts for observation. After speaking with the hospitalist, patient did inform me that she was on vancomycin IV and prior to that ciprofloxacin for a wound on her great toe on the left foot. Patient states that the wound was improving but is slowly started to increase in size. She fi nished the IV antibiotics about 3-4 weeks ago through the IV infusions clinic. I did call to update the hospitalist and asked her to also inform them. Patient's toe does have a ulceration although it does not look acutely infected at this time. Discharge Plan Departure Patient Disposition: Admitted as Observation Clinical Impression: Symptomatic anemia, Pancytopenia Discharge Date/Time: 03/14/19 13:10 Interventions: ED Discharge Assessment Last Done: 03/14/19 13:09 Referrals: Murphy Pete MD [Primary Care Provider] - Admit Date/Time: 03/14/19 12:58 Admit Provider: Syd Welsh
[2019-03-14 11:30] LABS: Mean Corpuscular HGB Conc 34.6 % (30-36); Mean Corpuscular Hemoglobin 39.3 PG (26-34); Mean Corpuscular Volume 113.6 fL (80-100); Platelet Count 120 X10^3/uL (150-400); Red Cell Distribution Width 21.4 % (11.6-14.8)
[2019-03-14 11:34] LABS: Add Manual Diff / Slide Review YES
[2019-03-14 11:35] LABS: Hematocrit 13.6 % (36-46); Hemoglobin 4.7 g/dL (12.0-16.0); White Blood Cell Count 1.8 X10^3/uL (4.5-11.0)
[2019-03-14 11:37] LABS: PTT Partial Thromboplastin Tim 34 SECONDS (26.4-36.2)
[2019-03-14 11:40] LABS: Alanine Aminotransferase 14 IU/L (9-52); Albumin 2.8 g/dL (3.5-5.0); Albumin Globulin Ratio 1.2 (1.0-2.8); Alkaline Phosphatase 89 U/L (38-126); Aspartate Aminotransferase 18 IU/L (14-36); Bilirubin Total 0.5 mg/dL (0.2-1.3); Blood Urea Nitrogen 12 mg/dL (7-17); Calcium 7.8 mg/dL (8.4-10.2); Carbon Dioxide 26 mmol/L (22-32); Chloride 107 mmol/L (98-107); Estimated Glomerular Filt Rate > 60.0 mL/min (>60); Globulin 2.4 g/dL (1.7-4.1); Glucose 91 mg/dL (70-100); HEMOLYSIS < 15 (0-50); Potassium 3.1 mmol/L (3.4-5.1); Sodium 139 mmol/L (137-145); Total Protein 5.2 g/dL (6.3-8.2)
[2019-03-14 12:04] LABS: Neutrophils Absolute Manual 864 /uL (3000-5900); Total Cells Counted 50
[2019-03-14 12:05] LABS: Macrocytosis 3+
[2019-03-14 12:06] LABS: Anisocytosis 3+
[2019-03-14 12:07] LABS: Ovalocytes 1+; Tear Drop Cells 1+
[2019-03-14 12:12] LABS: Reticulocyte Count, Percent 2.1 % (1.06-2.63)
[2019-03-14 12:13] LABS: Iron 95 ug/dL (37-170)
[2019-03-14] MEDS: POTASSIUM CHLORIDE 20 MEQ/15 ML UDC 40 MEQ PO (12:17)
[2019-03-14 13:21] LABS: Vitamin B12 927 pg/mL (239-931)
--- NOTE | 2019-03-14 13:32 | PC.NURSE ---
Day shift: Pt on unit from ED at approx 1315. Blood transfusing per protocol (blood transfusing on admit to ED). Pt A&Ox3. C/o weakness and being tired. Dr Malloy in room now talking to Pt ([id number]). Oriented to room and call light. Pt told that she is high fall risk at this time. Agrees to not get OOB w/o help from staff. Bed alarm is on. Call light in reach. Pt is not impulsive.
--- NOTE | 2019-03-14 14:26 | PM.HP.1 ---
History of Present Illness Date Patient Seen: 03/14/19 Time Patient Seen: 14:27 Chief complaint: Low H&H Narrative: Vanesa Yousif is a 38-year-old female with past medical history of Crohn's disease, PSC, chronic malnutrition on TPN secondary secondary to severe gastroparesis who was told to come to the emergency room for abnormal blood counts. She says for the past few days she has noticed worsening dyspnea on exertion, to the point where she can't load the obstetrics gyn physician without feeling short of breath. She can only handle a minimal amount bland chicken broth at most in the course of 1 day. She endorses chronic weight loss over the past year and a half losing approximately 80 lb. For the past few weeks she has been craving ice and she has recently in the past 2 weeks started on B12 and iron infusions. She reports no changes in her medications recently. She has been on TPN for approximately year and half, and her infusion company monitors her blood work. She had been having decreasing cell counts, but her most recent lab evaluation showed pancytopenia which is why she was told to go to the emergency room. She denies any fevers, chills, worsening abdominal pain, changes in her bowel movements, melena, bright red blood per rectum, hematemesis, hemoptysis, cough, recent sick contacts. She was on vancomycin for a few weeks for an infected left 1st toe, which was stopped about 3-4 weeks ago. Since stopping the infusion she notes an enlarging wound on her left 1st toe. She does follow [facility]. She also has PSC on Ursodiol which she reports as being stable, however someone mentioned to her in the past about having an enlarged spleen. Patient History Medical History (Updated 03/14/19 @ 16:58 by Dutch Malloy MD) Crohns disease (Chronic) Surgical History (Updated 03/14/19 @ 16:58 by Dutch Malloy MD) History of bowel resection (Chronic) Hx of appendectomy (Chronic) Social History Smoking Status: Former smoker Family & Social History Safety & Behavioral: Feels Safe in Current Yes Environment Been Physically Hurt or No Threatened By a Person Tobacco & Substance use: Smoking Status Former smoker alcohol intake frequency 0-2 drinks per day Substance Use Type does not use Meds Home Medications Medication Instructions Recorded Confirmed Type adalimumab [Humira Pen] 1 dose SUBCUT QWEEK 11/29/18 03/14/19 History alprazolam 0.5 mg PO TID 11/29/18 03/14/19 History alprazolam 1.5 mg PO BEDTIME 11/29/18 03/14/19 History azathioprine 250 mg PO DAILY 11/29/18 03/14/19 History budesonide 9 mg PO DAILY 11/29/18 03/14/19 History diphenoxylate-atropine 2 tab PO QID PRN 11/29/18 03/14/19 History epinephrine 0.3 mg IM PRN PRN 11/29/18 03/14/19 History gabapentin 1,800 mg PO BEDTIME 11/29/18 03/14/19 History gabapentin 900 mg PO BID 11/29/18 03/14/19 History ondansetron 8 mg TRANSLINGUAL QID 11/29/18 03/14/19 History oxycodone 10 mg PO 8XD 11/29/18 03/14/19 History pantoprazole 40 mg PO DAILY 11/29/18 03/14/19 History prednisone 1 mg PO DAILY 11/29/18 03/14/19 History promethazine 25 mg PO TID 11/29/18 03/14/19 History scopolamine base [Transderm-Scop] 1 patch TOPICAL Q3D 11/29/18 03/14/19 History sertraline 200 mg PO DAILY 11/29/18 03/14/19 History sumatriptan 1 spray INTRANASAL .ONCE PRN 11/29/18 03/14/19 History sumatriptan succinate 25 mg PO PRN PRN 11/29/18 03/14/19 History ursodiol 600 mg PO BID 11/29/18 03/14/19 History cyanocobalamin (vitamin B-12) 1 ml IM QWEEK 03/14/19 03/14/19 History famotidine 20 mg PO BID 03/14/19 03/14/19 History Allergies Allergy/AdvReac Type Severity Reaction Status Date / Time bee venom protein (honey bee) Allergy Verified 03/14/19 10:51 latex Allergy Verified 03/14/19 10:51 prochlorperazine AdvReac Mild Agitated Verified 03/14/19 10:51 [From Compazine] Review of Systems Review of Systems All other systems reviewed with the patient and are negative unless otherwise stated. Exam Vital Signs (past 8 hours): - 03/14/19 10:44 03/14/19 11:32 03/14/19 12:00 Temperature 98.6 F Pulse Rate 83 78 79 Respiratory Rate 16 11 L 17 Blood Pressure 113/47 L Blood Pressure [Left Arm] 107/49 L 98/45 L Pulse Oximetry 98 98 99 03/14/19 12:19 03/14/19 12:30 03/14/19 12:33 Temperature 97.5 F L 98.6 F Pulse Rate 79 79 81 Respiratory Rate 24 17 16 Blood Pressure 99/46 L 109/58 L Blood Pressure [Left Arm] 99/46 L Pulse Oximetry 98 03/14/19 13:00 03/14/19 14:03 Temperature 99.0 F Pulse Rate 80 74 Respiratory Rate 18 18 Blood Pressure 100/63 Blood Pressure [Left Arm] 105/60 Pulse Oximetry 97 99 Oxygen Delivery Method Room Air Oxygen Flow Rate 0 Narrative Exam Narrative: GENERAL APPEARANCE: Pale, chronically ill appearing but in no acute distress. SKIN: Inspection of the skin reveals pallor no rashes, ulcerations or petechiae. HEENT: The sclerae were anicteric but pale, and conjunctivae were pink and moist. Extraocular movements were intact and pupils were equal, round with normal accommodation. External inspection of the ears and nose showed no scars, lesions, or masses. Lips, teeth, and gums showed normal mucosa. The oral mucosa, hard and soft palate, tongue and posterior pharynx were unremarkable. NECK: Supple and symmetric. There was no thyroid enlargement, and no tenderness, or masses were felt. CHEST: Normal AP diameter and normal contour without any kyphoscoliosis. LUNGS: Auscultation of the lungs revealed no wheezes, rhonchi, or rales. CARDIOVASCULAR: There was a regular rate and rhythm with 3/6 systolic murmur. Peripheral pulses were 2+ and symmetric. ABDOMEN: Soft and nontender with normal bowel sounds. No ascites was noted. MUSCULOSKELETAL: There was no tenderness or effusions noted. Muscle strength and tone were normal. EXTREMITIES: No cyanosis, clubbing or edema. There is an approx 1x1 cm clean based ulcer on her L hallux. There is no surrounding erythema or induration. NEUROLOGIC: Alert and oriented x 3. Normal affect. Gait was normal. Strength is +5/5 in the Upper Extremities and Lower Extremities Bilaterally. Sensation to touch was normal. Objective Labs Result Diagrams: 03/14/19 11:07 03/14/19 11:07 Labs: Laboratory Results - last 24 hr 03/14/19 03/14/19 03/14/19 11:07 11:07 11:07 WBC 1.8 L* RBC 1.20 L Hgb 4.7 L* Hct 13.6 L* MCV 113.6 H MCH 39.3 H MCHC 34.6 RDW 21.4 H Plt Count 120 L Neut % (Auto) Not Reportable Lymph % (Auto) Not Reportable [place] % (Auto) Not Reportable Eos % (Auto) Not Reportable Baso % (Auto) Not Reportable Lymph # (Auto) Not Reportable [place] # (Auto) Not Reportable Baso # (Auto) Not Reportable Total Counted 50 Seg Neutrophils % 44.0 Band Neutrophils % 4.0 Lymphocytes % (Manual) 44.0 Atypical Lymphs % 2.0 H Monocytes % (Manual) 2.0 Eosinophils % (Manual) 4.0 Neutrophils # (Manual) 864 L RBC Morphology See below Anisocytosis 3+ H Macrocytosis 3+ H Tear Drop Cells 1+ H Ovalocytes 1+ H Percent Retic PT 12.0 INR 1.0 APTT 34 Sodium 139 Potassium 3.1 L Chloride 107 Carbon Dioxide 26 BUN 12 Creatinine 0.50 L Estimated GFR > 60.0 BUN/Creatinine Ratio 24.0 H Glucose 91 Calcium 7.8 L Iron Total Bilirubin 0.5 AST 18 ALT 14 Alkaline Phosphatase 89 Total Protein 5.2 L Albumin 2.8 L Globulin 2.4 Albumin/Globulin Ratio 1.2 Vitamin B12 Folate TSH Blood Type Antibody Screen Crossmatch 03/14/19 03/14/19 03/14/19 11:07 11:07 11:07 WBC RBC Hgb Hct MCV MCH MCHC RDW Plt Count Neut % (Auto) Lymph % (Auto) [place] % (Auto) Eos % (Auto) Baso % (Auto) Lymph # (Auto) [place] # (Auto) Baso # (Auto) Total Counted Seg Neutrophils % Band Neutrophils % Lymphocytes % (Manual) Atypical Lymphs % Monocytes % (Manual) Eosinophils % (Manual) Neutrophils # (Manual) RBC Morphology Anisocytosis Macrocytosis Tear Drop Cells Ovalocytes Percent Retic PT INR APTT Sodium Potassium Chloride Carbon Dioxide BUN Creatinine Estimated GFR BUN/Creatinine Ratio Glucose Calcium Iron 95 Total Bilirubin AST ALT Alkaline Phosphatase Total Protein Albumin Globulin Albumin/Globulin Ratio Vitamin B12 927 Folate 5.0 TSH 2.50 Blood Type AB Positive Antibody Screen Negative Crossmatch See Detail 03/14/19 11:07 WBC RBC Hgb Hct MCV MCH MCHC RDW Plt Count Neut % (Auto) Lymph % (Auto) [place] % (Auto) Eos % (Auto) Baso % (Auto) Lymph # (Auto) [place] # (Auto) Baso # (Auto) Total Counted Seg Neutrophils % Band Neutrophils % Lymphocytes % (Manual) Atypical Lymphs % Monocytes % (Manual) Eosinophils % (Manual) Neutrophils # (Manual) RBC Morphology Anisocytosis Macrocytosis Tear Drop Cells Ovalocytes Percent Retic 2.1 PT INR APTT Sodium Potassium Chloride Carbon Dioxide BUN Creatinine Estimated GFR BUN/Creatinine Ratio Glucose Calcium Iron Total Bilirubin AST ALT Alkaline Phosphatase Total Protein Albumin Globulin Albumin/Globulin Ratio Vitamin B12 Folate TSH Blood Type Antibody Screen Crossmatch Assessment & Plan Assessment & Plan narrative: Vanesa Yousif is a 38-year-old female with past medical history of Crohn's disease, PSC, chronic malnutrition on TPN secondary secondary to severe gastroparesis who was told to come to the emergency room for abnormal blood counts who was admitted to observation for pancytopenia and symptomatic anemia. 1. Pancytopenia, present on admission -differential is broad, but includes possible liver disease, side effect medication, or potential malignancy. -appreciate Hematology consult and recommendations -patient is going for bone biopsy today, and will follow up with Hematology Clinic. -can obtain ultrasound of her liver as an outpatient. 2. Symptomatic macrocytic anemia, acute, present on admission -hemoglobin of 4.7 on admission, MCV of 113. No evidence of schistocytes on smear and reticulocyte count is 2.1%. - see above management for pancytopenia - will transfuse 3U PRBC, repeat CBC following. Goal Hg >7. 3. Crohn's disease, chronic, present on admission - will hold medications while inpatient. - follows with GI at [facility], will need outpatient follow up for discussion of possible medication changes given pancytopenia. 4. Chronic severe protein calorie malnutrition, present on admission - - nutrition consult 5. L hallux wound, chronic, present on admission - - recommend outpatient wound clinic evaluation. Likely multifactorial in setting of TPN and malnutrition. There is no erythema or purulence to suggest active infection. Code: full code DVT: HSQ Dispo: Admit to observation status as patient's stay is not expected to exceed 2 midnights.
[2019-03-14] MEDS: URSODIOL 300 MG CAPSULE 600 MG PO (20:18)
[2019-03-14] MEDS: ALPRAZolam 0.25 MG TABLET 1.5 MG PO (20:18)
[2019-03-14] MEDS: GABAPENTIN 600 MG TABLET 1800 MG PO (20:18)
[2019-03-14] MEDS: PROMETHAZINE 25 MG TABLET PO (20:19)
[2019-03-14] MEDS: MORPHINE 2 MG/ML INJ IV (23:41)
[2019-03-14] MEDS: ACETAMINOPHEN 325 MG TABLET 650 MG PO (23:42)
[2019-03-15] VITALS (7 sets, daily range): BP systolic 116–140; BP diastolic 72–78; PULSE 54–70; RESP 16; TEMP 36.1–36.4; O2SAT 96–100; BMI 28.0
--- NOTE | 2019-03-15 03:34 | PC.NURSE ---
Shift note: Completed 2nd unit of blood at start of shift and just completed 3rd unit of blood at 0334. Pt had no adverse reactions to administration. Pt is AxO and can make needs known, call light in reach, bed alarm active and functioning, pt is a high fall risk d/t hx of falls, weakness, and blood counts.
[2019-03-15] MEDS: MORPHINE 2 MG/ML INJ IV (03:44)
[2019-03-15 06:19] LABS: Alanine Aminotransferase 6 IU/L (9-52); Albumin Globulin Ratio 1.2 (1.0-2.8); Alkaline Phosphatase 83 U/L (38-126); Aspartate Aminotransferase 20 IU/L (14-36); Bilirubin Total 1.9 mg/dL (0.2-1.3); Blood Urea Nitrogen 12 mg/dL (7-17); Calcium 8.2 mg/dL (8.4-10.2); Carbon Dioxide 29 mmol/L (22-32); Chloride 104 mmol/L (98-107); Estimated Glomerular Filt Rate > 60.0 mL/min (>60); Globulin 2.6 g/dL (1.7-4.1); Glucose 95 mg/dL (70-100); HEMOLYSIS < 15 (0-50); Magnesium 1.5 mg/dL (1.6-2.3); Phosphorous 3.2 mg/dL (2.5-4.5); Potassium 4.1 mmol/L (3.4-5.1); Sodium 137 mmol/L (137-145); Total Protein 5.6 g/dL (6.3-8.2)
[2019-03-15 07:11] LABS: Add Manual Diff / Slide Review NO; Basophils Absolute Auto 0 /uL (0-100); Basophils Percent Auto 0.3 % (0-2); Eosinophils Absolute Auto 0 /uL (0-450); Eosinophils Percent Auto 1.4 % (2-4); Hemoglobin 7.5 g/dL (12.0-16.0); Lymphocytes Absolute Auto 1300 /uL (1100-4500); Lymphocytes Percent Auto 53.8 % (25-40); Mean Corpuscular HGB Conc 35.9 % (30-36); Mean Corpuscular Hemoglobin 35.8 PG (26-34); Mean Corpuscular Volume 99.6 fL (80-100); Monocytes Absolute Auto 100 /uL (0-900); Monocytes Percent Auto 3.5 % (3-14); Neutrophils Absolute Auto 1000 /uL (1500-7000); Platelet Count 102 X10^3/uL (150-400); Red Blood Cell Count 2.11 X10^6/uL (4.0-5.2); Red Cell Distribution Width 22.4 % (11.6-14.8); White Blood Cell Count 2.4 X10^3/uL (4.5-11.0)
[2019-03-15 07:12] LABS: Anisocytosis 1+
[2019-03-15] MEDS: ALPRAZolam 0.25 MG TABLET 0.5 MG PO ×2 (08:18→13:21)
[2019-03-15] MEDS: MAGNESIUM SULFATE 2 GM/50 ML PIGGYBACK IV (08:18)
[2019-03-15] MEDS: SERTRALINE 50 MG TABLET 200 MG PO (08:18)
[2019-03-15] MEDS: URSODIOL 300 MG CAPSULE 600 MG PO (08:19)
[2019-03-15] MEDS: PROMETHAZINE 25 MG TABLET PO ×2 (08:20→13:21)
[2019-03-15] MEDS: GABAPENTIN 300 MG CAPSULE 900 MG PO ×2 (08:22→13:22)
--- NOTE | 2019-03-15 08:42 | CM.DANOTE ---
Addendum entered by Francesca Montenegro LPN 03/15/19 14:01: Met with pt as planned as well as a friend in the room who identifies himself as Soto. He says I don't like to give information about myself. Pt does wish to have him in the room during the discussion. Pt reports he will be taking her home at d/c. Pt's primary contact is her mother Devante Yousif, [place]. [phone]. Pt does follow up at the wound care clinic in [place] but says she recently went ot the [facility] as she was advised that she should see the Infectious Dz specialist: Dr. Burns. She will be continuing to have routine wound care done at the [facility] and prn advice on POC from Dr. Burns and the [facility] WC team. Denis curtis IS arrived and introduced him to pt and Soto. He is discussing the ongoing TPN plan, managed by Dr. Pete. Dr. Malloy did attempt the bone marrow biopsy last evening at the bedside: resulted in a dry tap. Dr. Welsh plans to follow up with him to see what the next process will be. He is also looking at giving pt another blood transfusion. Pt notes she is now sure if she will be d/c'd today or tomorrow but either way seems at ease with a home plan. Will be following and check in again tomorrow if pt is still here (very likely at this point). Original Note: Discharge Planning/Care Management DCP: assessment: case received, EMR review. Complexity of pt's medical issues is noted. Went to room to meet pt and introduce self and role. KIRTSIE [place] noted pt was in the bathroom and that she was up independently in the room. Updated room White Board with DCPlanner info and will plan to check back in with pt later today. Pt is a 38 year old female who admitted yesterday to care of hospitalist team. Oncologist Dr. Malloy was consulted and did see pt yesterday late afternoon with recommendation of a bone biopsy. PCP: Dr. Karina Pete. Pt also follows at a wound care clinic. Payer: [place] of [place] [employer]. [facility] liaison Denis Cain did leave a message stating the pt has been on TPN services for 1.5 years and has been following with their home infusion service. P: discuss case in Team Rounds. Check in with pt and follow for d/c issues and options. CM Discharge Assessment Start: 03/15/19 08:38 Freq: Status: Active Protocol: Document 03/15/19 08:39 ITV (Rec: 03/15/19 08:42 ITV [id number]) Discharge Planning Assessment Advance Directives? Yes History Provided By Medical Record Has Patient been admitted in last 30 No days? Prior Living Arrangements House Household Members none Community Services used prior to IV Therapy,Wound Care admission: Comment home TPN infusion services: TPN tx for last 1.5 years. Vendor: [facility]. Goes to a wound care clinic: unclear where at this time
[2019-03-15] MEDS: OXYCODONE 5 MG/5 ML ORAL SOLUTION 10 MG PO ×2 (09:36→13:20)
[2019-03-15] MEDS: SUMAtriptan 25 MG TABLET PO (13:26)
--- NOTE | 2019-03-15 14:10 | PC.NURSE ---
GI/Pain: Pt is on routine oxycodone at home, did not have any since yesterday. Pt reports she feels as if she was going into withdraw from not getting med. Did try to eat bkft. Emesis when she was trying to eat. She stopped. Not sure if this is from not getting oxycodone or if it is from her severe gastroporesis. MD made aware. Med started. Pt reports she is feeling better this afternoon. Also got some imatrex for a headache. Resting quietly at the moment. Cont w//poc.
--- NOTE | 2019-03-15 14:10 | DIET.PN ---
Dietary Progress Note Assessment: 38y F c past medical history of Crohn's disease, PSC, chronic malnutrition on TPN secondary to severe gastroparesis who was told to come to the emergency room for abnormal blood counts. Pt has long history c Crohn's starting at 25y after stressful job transition, multiple close family deaths, and pneumonia leading to 2.5mo hospital stay and 4 ft bowl resection. Strong family hx of Crohns- mother, 3 uncles, brother, and nephew- all severe crohns reliant on depends. Per conversation c [facility] RD (Becky) who has been following pt since she started TPN in November 2017. Pt started losing wt Jul 2018. Recent wt hx: December 03: 100kg, Aug 06: 92kg, November: 77kg, Mar 09: 68kg, Today: 74kg Pt attributes this to stress of divorce. Her served papers in Jul 2018 and moved out October 2018. Strong connection bw stress and crohns flares. Pt is not unhappy with the wt loss (r/t chronic steroid use associated wt gain) but unhappy that it came off so quickly and in unhealthy way. States this has happened before under times of stress, though, admits this is a longer course. Pt has good understanding of her dz, medications, admits lacking social support. Pt would like to be able to eat again and stop TPN. If continuing TPN would like to infuse over 18 or 24h to reduce nocturia. Pt is trying soup today, for lunch. HT: 162.5cm WT: 74kg (20% loss in 6mo, severe) BMI: 28 Labs: WBC 2.4 (L), RBC 2.11 (L), hgb 7.5 (L), hct 21.0 (L) despite 3 transfusions in past day. Pt has labs drawn every two weeks and monitored by RD at [facility]. Per infusion RD, pt labs including micronutrients all WNL in Jul 2018, showed signs of anemia in January, big drop in hemo labs Feb 19 at which point pt started iron (Venofer) and b12 infusions, completed 2-3 but was told to go to ER when labs drawn yesterday. Nutrition Diagnosis: Acute on chronic severe PCM r/t chronic malabsorption and dx crohns dz aeb 20% wt loss in 6 mo (severe), pt reliant on TPN for past 1.5y, moderate subcutaneous fat and muscle losses system wide c significant loose, baggy skin. Interventions: consider copper lab, copper deficiency is rare but happens with malnutrition and long-term TPN use, sx include anemia, neutropenia, mimics b12 deficiency. Pt is due for micronutrient lab check per [facility] RD. Insurance will not cover [facility] TPN while inpatient at . [facility] If pt stays another night, start continuous Clinimix 2000mL @ 85mL/h providing 2040kcal and 85g PRO. Monitoring/Evaluations: monitoring daily
--- NOTE | 2019-03-15 19:45 | P.DS_ITS ---
History of Present Illness History of Present Illness Chief complaint: Low H&H Narrative: Vnaesa Yousif is a 38-year-old female with past medical history of Crohn's disease, PSC, chronic malnutrition on TPN secondary secondary to severe gastroparesis who was told to come to the emergency room for abnormal blood c ounts. 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 She can only handle a minimal amount bland chicken broth at most in the course of 1 day. She endorses chronic weight loss over the past year and a half losing approximately 80 lb. For the past few weeks she has been craving ice and she has recently in the past 2 weeks started on B12 and iron infusions. She reports no changes in her medications recently. She has been on TPN for approximately year and half, and her infusion company monitors her blood work. She had been having decreasing cell counts, but her most recent lab evaluation showed pancytopenia which is why she was told to go to the emergency room. She denies any fevers, chills, worsening abdominal pain, changes in her bowel movements, melena, bright red blood per rectum, hematemesis, hemoptysis, cough, recent sick contacts. She was on vancomycin for a few weeks for an infected left 1st toe, which was stopped about 3-4 weeks ago. Since stopping the inf usion she notes an enlarging wound on her left 1st toe. [facility] She also has PSC on Ursodiol which she reports as being stable, however someone mentioned to her in the past about having an enlarged spleen. Discharge Providers Provider Date of admission: 03/14/19 12:58 Discharge Date: 03/15/19 Primary care physician: Murphy Pete MD Consults: 03/14/19 16:53 Consult to Dietitian, Adult Routine Comment: Reason For Exam: npo, only tpn Discharge provider: Syd Welsh DO Summary Hospital Course Discharge Diagnosis: 1. Pancytopenia, present on admission 2. Symptomatic macrocytic anemia, acute, present on admission 3. Crohn's disease, chronic, present on admission 4. Chronic severe protein calorie malnutrition, present on admission 5. Left hallux wound, chronic, present on admission Hospital Course: Vanesa Yousif is a 38-year-old female with past medical history of Crohn's disease, PSC, chronic malnutrition on TPN secondary secondary to severe gastroparesis who was told to come to the emergency room for abnormal blood counts who was admitted to observation for pancytopenia and symptomatic anemia. She improved symptomatically after 3U PRBC, post transfusion was approprately 7.4 and she was discharged home the following day. 1. Pancytopenia, present on admission -differential is broad, but includes poss ible liver disease, side effect medication, or potential malignancy. Differential further includes copper deficiency as well. She underwent a bone biopsy with Dr. Malloy to help determine the etiology and to evaluate for possible malignancy. - follow up with Dr. Malloy in hematology clinic for results of bone biopsy. -stop azathioprine but asked patient to follow up with her GI doctor soon to discuss this given pancytopenia. -consider copper supplement or adding this to her TPN if possible. 2. Symptomatic macrocytic anemia, acute, present on admission -hemoglobin of 4.7 on admission, MCV of 113. No evidence of schistocytes on smear and reticulocyte count is 2.1%. - see above management for pancytopenia - s/p 3U PRBC, improved symptomatically and improved to 7.4 at discharge. 3. Crohn's disease, chronic, present on admission - follows with GI at [facility], will need outpatient follow up for discussion of possible medication changes given pancytopenia. -recommended holding azathioprine upon discharge but she will discuss this with her GI physician. 4. Chronic severe protein calorie malnutrition, present on admission - - nutrition consult appreciated. 5. L hallux wound, chronic, present on admission - - recommend outpatient wound clinic evaluation. Likely multifactorial in setting of TPN and malnutrition. There was no erythema or purulence to suggest active infection. Status at Discharge Cognitive/behavioral status at discharge: oriented Functional status at discharge: independent ambulation Overall status at discharge: patient is back to baseline Exam Vital Signs (past 8 hours): - 03/15/19 12:00 Temperature 97.5 F L Pulse Rate 70 Respiratory Rate 16 Blood Pressure 127/72 Pulse Oximetry 98 Oxygen Delivery Method Room Air Oxygen Flow Rate 0 Narrative Exam Narrative: GENERAL APPEARANCE: Pale, chronically ill appearing but in no acute distress. SKIN: Inspection of the skin reveals pallor no rashes, ulcerations or petechiae. HEENT: The sclerae were anicteric but pale, and conjunctivae were pink and moist. Extraocular movements were intact and pupils were equal, round with normal accommodation. External inspection of the ears and nose showed no scars, lesions, or masses. Lips, teeth, and gums showed normal mucosa. The oral mucosa, hard and soft palate, tongue and posterior pharynx were unremarkable. NECK: Supple and symmetric. There was no thyroid enlargement, and no tenderness, or masses were felt. CHEST: Normal AP diameter and normal contour without any kyphoscoliosis. LUNGS: Auscultation of the lungs revealed no wheezes, rhonchi, or rales. CARDIOVASCULAR: There was a regular rate and rhythm with 3/6 systolic murmur. Peripheral pulses were 2+ and symmetric. ABDOMEN: Soft and nontender with normal bowel sounds. No ascites was noted. MUSCULOSKELETAL: There was no tenderness or effusions noted. Muscle strength and tone were normal. EXTREMITIES: No cyanosis, clubbing or edema. There is an approx 1x1 cm clean based ulcer on her L hallux. There is no surrounding erythema or induration. NEUROLOGIC: Alert and oriented x 3. Normal affect. Gait was normal. Strength is +5/5 in the Upper Extremities and Lower Extremities Bilaterally. Sensation to touch was normal. Objective Labs Result Diagrams: 03/15/19 05:04 03/15/19 05:04 Labs: Laboratory Results - last 24 hr 03/14/19 03/14/19 03/15/19 11:07 11:07 05:04 WBC RBC Hgb Hct MCV MCH MCHC RDW Plt Count Neut % (Auto) Lymph % (Auto) [place] % (Auto) Eos % (Auto) Baso % (Auto) Neut # (Auto) Lymph # (Auto) [place] # (Auto) Eos # (Auto) Baso # (Auto) RBC Morphology Anisocytosis Smear Path Review Sodium 137 Potassium 4.1 Chloride 104 Carbon Dioxide 29 BUN 12 Creatinine 0.50 L Estimated GFR > 60.0 BUN/Creatinine Ratio 24.0 H Glucose 95 Calcium 8.2 L Phosphorus 3.2 Magnesium 1.5 L Total Bilirubin 1.9 H AST 20 ALT 6 L Alkaline Phosphatase 83 Total Protein 5.6 L Albumin 3.0 L Globulin 2.6 Albumin/Globulin Ratio 1.2 Blood Type AB Positive Antibody Screen Negative Crossmatch See Detail 03/15/19 05:04 WBC 2.4 L RBC 2.11 L Hgb 7.5 L Hct 21.0 L MCV 99.6 D MCH 35.8 H MCHC 35.9 RDW 22.4 H Plt Count 102 L Neut % (Auto) 41.0 L Lymph % (Auto) 53.8 H [place] % (Auto) 3.5 Eos % (Auto) 1.4 L Baso % (Auto) 0.3 Neut # (Auto) 1000 L Lymph # (Auto) 1300 [place] # (Auto) 100 Eos # (Auto) 0 Baso # (Auto) 0 RBC Morphology See below Anisocytosis 1+ H D Smear Path Review Sodium Potassium Chloride Carbon Dioxide BUN Creatinine Estimated GFR BUN/Creatinine Ratio Glucose Calcium Phosphorus Magnesium Total Bilirubin AST ALT Alkaline Phosphatase Total Protein Albumin Globulin Albumin/Globulin Ratio Blood Type Antibody Screen Crossmatch Discharge Plan Discharge Plan Patient Disposition: Home Discharge comment: You were admitted to the hospital for a severe anemia, but also a decrease in all of your blood counts. You underwent a biopsy with Dr. Malloy, a data governance analyst, and you have a follow-up appointment with him already scheduled to see about the results of the biopsy. You received 3 units of blood and your anemia improved. Please discuss with your forest technology professor about continuing or stopping any of your current medications, and given that you are on TPN you may want to consider either a copper supplement or inquire if this can be added to your infusion. You should obtain a blood test on March [address] Malloy prior to your follow-up visit with him. Discharge Med Rec/Prescriptions Prescriptions: Continued famotidine 20 mg tablet 20 mg PO BID RF: 0 cyanocobalamin (vitamin B-12) 1,000 mcg/mL solution 1 ml IM QWEEK RF: 0 sumatriptan succinate 25 mg tablet 25 mg PO PRN PRN (Reason: Migraine Headache) RF: 0 diphenoxylate-atropine 2.5-0.025 mg tablet 2 tab PO QID PRN (Reason: Diarrhea) RF: 0 ondansetron 8 mg tablet,disintegrating 8 mg Translingual QID RF: 0 alprazolam 0.5 mg tablet 0.5 mg PO TID RF: 0 alprazolam 0.5 mg tablet 1.5 mg PO BEDTIME RF: 0 prednisone 1 mg tablet 1 mg PO DAILY RF: 0 pantoprazole 40 mg tablet,delayed release (DR/EC) 40 mg PO DAILY RF: 0 promethazine 25 mg tablet 25 mg PO TID RF: 0 ursodiol 300 mg capsule 600 mg PO BID RF: 0 gabapentin 300 mg capsule 900 mg PO BID RF: 0 gabapentin 300 mg capsule 1,800 mg PO BEDTIME RF: 0 budesonide 3 mg capsule,delayed,extend.release 9 mg PO DAILY RF: 0 epinephrine 0.3 mg/0.3 mL auto-injector 0.3 mg IM PRN PRN (Reason: Allergic Reaction) RF: 0 scopolamine base 1 mg over 3 days patch 3 day 1 patch topical Q3D RF: 0 sumatriptan 20 mg/actuation spray,non-aerosol 1 spray Intranasal .ONCE PRN (Reason: Migraine Headache) RF: 0 sertraline 50 mg tablet 200 mg PO DAILY RF: 0 adalimumab 40 mg/0.8 mL pen injector kit 1 dose subcut QWEEK RF: 0 oxycodone 10 mg tablet 10 mg PO 8XD RF: 0 Discontinued azathioprine 50 mg tablet 250 mg PO DAILY RF: 0 Follow up/Referrals: Murphy Pete MD [Primary Care Provider] - Provider Discharge Instructions Diet: Diet as Tolerated Diet comment: Consider adding copper to TPN if not included or a supplement you can take. Activity: No restrictions Visit Report/Discharge Packet Instructions: Anemia, DI for Blood Transfusion, DI for Gastroparesis Discharge Data Primary Care Provider: Murphy Pete Attending Provider: Syd Welsh Admit Date/Time: 03/14/19 12:58 Discharges patient from system. Discharge Date/Time: 03/15/19 16:15 Quality VTE Deep Vein Thrombosis/Pulmonary Embolism Present on Admission: No
--- NOTE | 2019-04-14 12:06 | PC.NURSE ---
late entry: Magnesium sulfate stopped 03/15 10:18
== END 2019-03-15 16:15 | disposition home or self-care (01) ==
LOC: ED 12:38 → AC 12:59
PROVIDERS: Admitting Provider Internal Medicine; Emergency Provider Emergency Medicine; PCP Family Medicine; Visit Provider Internal Medicine
DX: D53.9 Nutritional anemia, unspecified (principal); D61.818 Other pancytopenia; K50.90 Crohn's disease, unspecified, without complications; K31.84 Gastroparesis; E43 Unspecified severe protein-calorie malnutrition; Z68.28 Body mass index [BMI] 28.0-28.9, adult; Z87.891 Personal history of nicotine dependence; S91.102A Unspecified open wound of left great toe without damage to nail, initial encounter; X58.XXXA Exposure to other specified factors, initial encounter
CPT/HCPCS: 36415; 36430; 80053; 82607; 82746; 83540; 83735; 84100; 84443; 85025; 85045; 85610; 85730; 86850; 86900; 86901; 96365; 96366; 96375; 96376; 99234; 99283; 99284; G0378; P9016; J2270

== ENCOUNTER 2019-03-16 20:08 | Emergency (ER) | payer BC, SELFPAY ==
[2019-03-16 20:25] VITALS: BP 116/71; PULSE 85; RESP 15; TEMP 36.7; O2SAT 100; BMI 24.0
--- NOTE | 2019-03-16 22:41 | ED_ITS ---
HPI - Nausea/Vomiting/Diarrhea General Chief complaint: Nausea/Vomiting/Diarrhea Stated complaint: SWELLING S/P BLOOD TRANSFUSION Time Seen by Provider: 03/16/19 22:41 Source: patient Mode of arrival: ambulatory Limitations: no limitations History of Present Illness HPI Narrative: Patient is a 38-year-old female with history of Crohn's disease and recent anemia she is on TPN and has been for the last year and half. She was recently admitted with pancytopenia requiring 4 units of blood she was discharged yesterday. She says today she has a swelling in her legs. And she has been vomiting. She says the vomiting is new she does not eat so she typically does not vomit. She denies any pain no fevers. She has no calf pain. She has no shortness of breath or chest pain. Related Data Home Medications Medication Instructions Recorded Confirmed adalimumab 1 dose SUBCUT QWEEK 11/29/18 03/14/19 alprazolam 0.5 mg PO TID 11/29/18 03/14/19 alprazolam 1.5 mg PO BEDTIME 11/29/18 03/14/19 budesonide 9 mg PO DAILY 11/29/18 03/14/19 diphenoxylate-atropine 2 tab PO QID PRN 11/29/18 03/14/19 epinephrine 0.3 mg IM PRN PRN 11/29/18 03/14/19 gabapentin 1,800 mg PO BEDTIME 11/29/18 03/14/19 gabapentin 900 mg PO BID 11/29/18 03/14/19 ondansetron 8 mg TRANSLINGUAL QID 11/29/18 03/14/19 oxycodone 10 mg PO 8XD 11/29/18 03/14/19 pantoprazole 40 mg PO DAILY 11/29/18 03/14/19 prednisone 1 mg PO DAILY 11/29/18 03/14/19 promethazine 25 mg PO TID 11/29/18 03/14/19 scopolamine base 1 patch TOPICAL Q3D 11/29/18 03/14/19 sertraline 200 mg PO DAILY 11/29/18 03/14/19 sumatriptan 1 spray INTRANASAL .ONCE PRN 11/29/18 03/14/19 sumatriptan succinate 25 mg PO PRN PRN 11/29/18 03/14/19 ursodiol 600 mg PO BID 11/29/18 03/14/19 cyanocobalamin (vitamin B-12) 1 ml IM QWEEK 03/14/19 03/14/19 famotidine 20 mg PO BID 03/14/19 03/14/19 Allergies Allergy/AdvReac Type Severity Reaction Status Date / Time bee venom protein (honey bee) Allergy Verified 03/16/19 20:25 latex Allergy Verified 03/16/19 20:25 prochlorperazine AdvReac Mild Agitated Verified 03/16/19 20:25 [From Compazine] Review of Systems Review of Systems ROS Unobtainable: All systems reviewed & are unremarkable except as noted in HPI and below Constitutional Constitutional: Denies chills, Denies fever(s), Denies lethargy and Denies weakness Eyes Eyes: Denies change in vision, Denies eye discharge, Denies irritation and Denies loss of vision Cardiovascular Cardiovascular: Denies chest pain, Denies irregular heart rhythm, Denies lightheadedness, Denies palpitations, Denies dyspnea, Denies dyspnea on exertion and Denies orthopnea Respiratory Respiratory: Denies cough, Denies dyspnea, Denies dyspnea on exertion and Denies wheezing Gastrointestinal Gastrointestinal: Reports as per HPI Genitourinary Genitourinary: Denies hematuria, Denies flank pain, Denies urinary incontinence and Denies urinary urgency Musculoskeletal Musculoskeletal: Denies back pain, Denies muscle weakness, Denies numbness and Denies tingling Neurologic Neurologic: Denies loss of vision, Denies numbness, Denies tingling and Denies weakness Endocrine Endocrine: Denies palpitations Hematologic/Lymphatic Hematologic/Lymphatic: Reports as per HPI Allergic/Immunologic Allergic/Immunologic: Denies wheezing [facility] Medical History Crohns disease (Chronic) Pancytopenia (Inactive) Surgical History History of bowel resection (Chronic) Hx of appendectomy (Chronic) Social History household members: none Smoking Status: Former smoker alcohol intake: former Social History household members: none Smoking Status: Former smoker alcohol intake: former Exam Initial Vital Signs Initial Vital Signs: Vital Signs Temperature 98.1 F 03/16/19 20:25 Pulse Rate 85 03/16/19 20:25 Respiratory Rate 15 03/16/19 20:25 Blood Pressure 116/71 03/16/19 20:25 Pulse Oximetry 100 03/16/19 20:25 GENERAL: Well-appearing, well-nourished and in no acute distress. HEENT: Head atraumatic,EOMI, pupils reactive, face symmetric, moist mucous membranes CARDIOVASCULAR: Regular rate and rhythm without murmurs, rubs or gallops. RESPIRATORY: Breath sounds equal bilaterally, no wheezes rales or rhonchi. Yaoub port noted on right side ABDOMEN: Soft, nontender. Normoactive bowel sounds all 4 quadrants. No guarding or rebound. EXTREMITIES: Normal range of motion, no clubbing or edema. Neurovascularly intact Legs are noted to have nonpitting edema swelling noted around the ankles. No calf pain distal pedal pulses intact and feet are warm but no significant erythema. NEUROLOGICAL: Alert and oriented x4.Normal gait and speech. Cranial nerves II through XII grossly intact. SKIN: Biopsy site noted on left hip clean and dry no erythema. No other rash vesicles. Course Orders Ordered: ED Orders 03/16/19 22:43 Complete Blood Count AUTO DIFF Stat Comprehensive Metabolic Panel Stat Lipase Stat 03/16/19 22:51 XR acute abdomen series Stat Discontinued Medications Furosemide (Lasix) 20 mg IV NOW ONE Stop: 03/16/19 23:21 Last Admin: 03/17/19 00:01 Dose: 20 mg Documented by: ARNALDO Heparin Sodium (Porcine) (Heparin Lock Port) 500 unit IV PRN PRN PRN Reason: Flush Hydromorphone HCl (Dilaudid) 1 mg IV Q15M PRN PRN Reason: Pain, Severe (7-10) Last Admin: 03/16/19 23:11 Dose: 1 mg Documented by: ARNALDO Sodium Chloride (Normal Saline 0.9%) 1,000 mls @ 1,000 mls/hr IV CONT DORITA Last Infusion: 03/17/19 00:12 Dose: 0 mls/hr Documented by: Admin: 03/16/19 23:11 Dose: 1,000 mls/hr Documented by: ARNALDO Ondansetron HCl (Zofran) 4 mg IV NOW ONE Stop: 03/16/19 22:52 Last Admin: 03/16/19 23:11 Dose: 4 mg Documented by: ARNALDO Pantoprazole Sodium (Protonix) 40 mg IV NOW ONE Stop: 03/16/19 22:52 Last Admin: 03/16/19 23:11 Dose: 40 mg Documented by: ARNALDO Vital Signs Vital signs: Vital Signs - 8 hr 03/16/19 20:25 03/16/19 23:21 03/17/19 00:45 Temperature 98.1 F Pulse Rate 85 64 70 Respiratory Rate 15 16 16 Blood Pressure 116/71 116/75 Blood Pressure [Left Arm] 112/60 Pulse Oximetry 100 97 98 MDM - Nausea/Vomiting/Diarrhea Lab Data Attestation: I reviewed the patient's lab results. Result diagrams: 03/16/19 22:43 03/16/19 22:43 Labs: Lab Results 03/16/19 03/16/19 Range/Units 22:43 22:43 WBC 1.9 L* (4.5-11.0) X10^3/uL RBC 2.17 L (4.0-5.2) X10^6/uL Hgb 7.7 L (12.0-16.0) g/dL Hct 22.1 L (36-46) % MCV 101.8 H (80-100) fL MCH 35.7 H (26-34) PG MCHC 35.1 (30-36) % RDW 21.3 H (11.6-14.8) % Plt Count 111 L (150-400) X10^3/uL Neut % (Auto) Not Reportable Lymph % (Auto) Not Reportable [place] % (Auto) Not Reportable Eos % (Auto) Not Reportable Baso % (Auto) Not Reportable Lymph # (Auto) Not Reportable [place] # (Auto) Not Reportable Baso # (Auto) Not Reportable Total Counted 100 Seg Neutrophils % 72.0 H (38-70) % Lymphocytes % (Manual) 28.0 (25-45) % Neutrophils # (Manual) 1368 L (0699-9905) /uL RBC Morphology See below Dimorphic RBCs * Sodium 135 L (137-145) mmol/L Potassium 3.8 (3.4-5.1) mmol/L Chloride 100 (98-107) mmol/L Carbon Dioxide 28 (22-32) mmol/L BUN 8 (7-17) mg/dL Creatinine 0.50 L (0.52-1.04) mg/dL Estimated GFR > 60.0 (>60) mL/min BUN/Creatinine Ratio 16.0 (6-22) Glucose 75 (70-100) mg/dL Calcium 8.5 (8.4-10.2) mg/dL Total Bilirubin 1.5 H (0.2-1.3) mg/dL AST 23 (14-36) IU/L ALT 12 (9-52) IU/L Alkaline Phosphatase 91 (38-126) U/L Total Protein 6.0 L (6.3-8.2) g/dL Albumin 3.3 L (3.5-5.0) g/dL Globulin 2.7 (1.7-4.1) g/dL Albumin/Globulin Ratio 1.2 (1.0-2.8) Lipase 28 (23-300) U/L Imaging Data Abdominal x-ray: Attestation: I personally reviewed and interpreted this imaging study as follows: My impression: No obstruction no air-fluid levels MDM Narrative Medical decision making narrative: The patient is consistently pancytopenic hemoglobin hematocrit are stable. She is no longer vomiting she is ambulatory to the restroom. I did give her small dose of Lasix to maybe help with the swelling in her legs. However she has no respiratory symptoms. She has no pain I do not think DVT she has bilateral swelling. Abdomen is non tender x-ray negative. She is ambulatory to the restroom. At this time patient feels better and ready and able to go home with close follow- up. Discharge Plan Departure Patient Disposition: Home Clinical Impression: Pancytopenia, Bilateral leg edema Vomiting Qualifiers: Vomiting type: unspecified Vomiting Intractability: non-intractable Nausea presence: without nausea Qualified Code(s): R11.11 - Vomiting without nausea Discharge Date/Time: 03/17/19 00:47 Instructions: DI for Vomiting -- Adult Activity Restrictions/Additional Instructions: *You have been diagnosed with vomiting, bilateral lower extremity edema pancytopenia *What to do: Swelling in legs I think is likely related to recent significant blood transfusion. He were given a dose of medicines Lasix which will need to urinate frequently throughout the night hopefully help with swelling. Await bone marrow biopsy results follow-up with oncology *Continue to take medications as directed *Follow up with your primary care provider in 2-3 days *Return to ER if you should have increasing shortness of breath, persistent v omiting severe fatigue or any new, worsening or concerning symptoms Prescriptions: No Action famotidine 20 mg tablet 20 mg PO BID RF: 0 cyanocobalamin (vitamin B-12) 1,000 mcg/mL solution 1 ml IM QWEEK RF: 0 sumatriptan succinate 25 mg tablet 25 mg PO PRN PRN (Reason: Migraine Headache) RF: 0 diphenoxylate-atropine 2.5-0.025 mg tablet 2 tab PO QID PRN (Reason: Diarrhea) RF: 0 ondansetron 8 mg tablet,disintegrating 8 mg Translingual QID RF: 0 alprazolam 0.5 mg tablet 0.5 mg PO TID RF: 0 alprazolam 0.5 mg tablet 1.5 mg PO BEDTIME RF: 0 prednisone 1 mg tablet 1 mg PO DAILY RF: 0 pantoprazole 40 mg tablet,delayed release (DR/EC) 40 mg PO DAILY RF: 0 promethazine 25 mg tablet 25 mg PO TID RF: 0 ursodiol 300 mg capsule 600 mg PO BID RF: 0 gabapentin 300 mg capsule 900 mg PO BID RF: 0 gabapentin 300 mg capsule 1,800 mg PO BEDTIME RF: 0 budesonide 3 mg capsule,delayed,extend.release 9 mg PO DAILY RF: 0 epinephrine 0.3 mg/0.3 mL auto-injector 0.3 mg IM PRN PRN (Reason: Allergic Reaction) RF: 0 scopolamine base 1 mg over 3 days patch 3 day 1 patch topical Q3D RF: 0 sumatriptan 20 mg/actuation spray,non-aerosol 1 spray Intranasal .ONCE PRN (Reason: Migraine Headache) RF: 0 sertraline 50 mg tablet 200 mg PO DAILY RF: 0 adalimumab 40 mg/0.8 mL pen injector kit 1 dose subcut QWEEK RF: 0 oxycodone 10 mg tablet 10 mg PO 8XD RF: 0 Referrals: Murphy Pete MD [Primary Care Provider] - Dutch Malloy MD [Physician] -
--- NOTE | 2019-03-16 22:51 | DI.RAD.S_ITS ---
PROCEDURE: XR ACUTE ABDOMEN SERIES INDICATIONS: vomiting, abdominal pain TECHNIQUE: One view chest and two views of the abdomen were acquired. COMPARISON: [facility], CR, XR CHEST 1 VIEW, 02/17/2019, 14:43. FINDINGS: Surgical changes and devices: Dual lumen central venous catheter. Cholecystectomy clips. Status post bilateral hip intertrochanteric fracture ORIF. Chest: Lungs are clear. Heart size is normal. No pleural effusions. No pneumoperitoneum. Abdomen: Gaseous distention of several loops of bowel. Scattered air-fluid levels are noted. Several air-fluid levels at differential heights concerning for early or partial small bowel obstruction. No suspicious calcifications. Visualized solid organ contours appear normal. Bones: No suspicious bony lesions. IMPRESSION: Mild distention of several loops of small bowel with scattered air-fluid levels concerning for early or partial small bowel obstruction. Dictated by: Jade Angeles MD, PhD on 03/17/2019 at 8:31 Approved by: Jade Angeles MD, PhD on 03/17/2019 at 8:33
[2019-03-16 23:03] LABS: Alanine Aminotransferase 12 IU/L (9-52); Albumin 3.3 g/dL (3.5-5.0); Albumin Globulin Ratio 1.2 (1.0-2.8); Alkaline Phosphatase 91 U/L (38-126); Aspartate Aminotransferase 23 IU/L (14-36); Bilirubin Total 1.5 mg/dL (0.2-1.3); Blood Urea Nitrogen 8 mg/dL (7-17); Calcium 8.5 mg/dL (8.4-10.2); Carbon Dioxide 28 mmol/L (22-32); Chloride 100 mmol/L (98-107); Estimated Glomerular Filt Rate > 60.0 mL/min (>60); Globulin 2.7 g/dL (1.7-4.1); Glucose 75 mg/dL (70-100); HEMOLYSIS < 15 (0-50); Lipase 28 U/L (23-300); Potassium 3.8 mmol/L (3.4-5.1); Sodium 135 mmol/L (137-145)
[2019-03-16 23:05] LABS: Hematocrit 22.1 % (36-46); Hemoglobin 7.7 g/dL (12.0-16.0); Mean Corpuscular HGB Conc 35.1 % (30-36); Mean Corpuscular Hemoglobin 35.7 PG (26-34); Mean Corpuscular Volume 101.8 fL (80-100); Platelet Count 111 X10^3/uL (150-400); Red Blood Cell Count 2.17 X10^6/uL (4.0-5.2); Red Cell Distribution Width 21.3 % (11.6-14.8)
[2019-03-16] MEDS: ONDANSETRON 4 MG/2 ML INJ IV (23:11)
[2019-03-16] MEDS: HYDROMORPHONE 1 MG INJ IV (23:11)
[2019-03-16] MEDS: PANTOPRAZOLE 40 MG VIAL IV (23:11)
[2019-03-16] MEDS: SODIUM CHLORIDE 0.9% 1,000 ML 1000 ML IV (23:11)
[2019-03-16 23:13] LABS: Add Manual Diff / Slide Review YES; White Blood Cell Count 1.9 X10^3/uL (4.5-11.0)
[2019-03-16 23:21] VITALS: BP 112/60; PULSE 64; RESP 16; O2SAT 97
[2019-03-16 23:57] LABS: Neutrophils Absolute Manual 1368 /uL (3000-5900); Total Cells Counted 100
[2019-03-17] MEDS: FUROSEMIDE 20 MG/2 ML VIAL IV (00:01)
--- NOTE | 2019-03-17 00:28 | PC.NURSE ---
Pt to rm 8. AAOx3 reports BL leg swelling s/p multiple unit blood transfusion 2 days ago. reports h/o crohns and low WBC which she received at bone biposy in the L iliac crest with dressing intact. denies CP SOB. double lumen [facility] cath in place due to pt receiving TPN regularly. labs drawn from [facility] per protocol and flushed with 5mL NS and 5 mL 100u/mL heparin flush per [facility] protocol. New sterile hub applied post lab draw. pt tolerated well. IVF infusing through 2nd lumen. medicated per EMR. pt OOB to BR with steady gait at leisure. friend at side.
[2019-03-17 00:45] VITALS: BP 116/75; PULSE 70; RESP 16; O2SAT 98
== END 2019-03-17 00:47 | disposition home or self-care (01) ==
PROVIDERS: Emergency Provider Emergency Medicine; PCP Family Medicine
DX: D61.818 Other pancytopenia (principal); R60.0 Localized edema
CPT/HCPCS: 74022; 80053; 83690; 85025; 96361; 96374; 96375; 96376; 99283; 99284; C9113; J1170; J1642; J1940; J2405

== ENCOUNTER → 2019-04-10 14:48 | Outpatient (ROUT) | payer BC, SELFPAY ==
[2019-04-10 15:19] LABS: Alanine Aminotransferase 9 IU/L (9-52); Albumin 3.6 g/dL (3.5-5.0); Albumin Globulin Ratio 1.3 (1.0-2.8); Alkaline Phosphatase 79 U/L (38-126); Aspartate Aminotransferase 26 IU/L (14-36); Bilirubin Total 0.7 mg/dL (0.2-1.3); Blood Urea Nitrogen 11 mg/dL (7-17); Calcium 8.7 mg/dL (8.4-10.2); Carbon Dioxide 28 mmol/L (22-32); Chloride 105 mmol/L (98-107); Estimated Glomerular Filt Rate > 60.0 mL/min (>60); Globulin 2.8 g/dL (1.7-4.1); Glucose 83 mg/dL (70-100); HEMOLYSIS < 15 (0-50); Magnesium 1.7 mg/dL (1.6-2.3); Phosphorous 3.2 mg/dL (2.5-4.5); Potassium 4.2 mmol/L (3.4-5.1); Sodium 138 mmol/L (137-145); Total Protein 6.4 g/dL (6.3-8.2)
[2019-04-10 15:21] LABS: Add Manual Diff / Slide Review NO; Basophils Absolute Auto 0 /uL (0-100); Basophils Percent Auto 0.2 % (0-2); Eosinophils Absolute Auto 100 /uL (0-450); Eosinophils Percent Auto 1.2 % (2-4); Hematocrit 29.8 % (36-46); Hemoglobin 10.1 g/dL (12.0-16.0); Lymphocytes Absolute Auto 1800 /uL (1100-4500); Mean Corpuscular Hemoglobin 38.3 PG (26-34); Mean Corpuscular Volume 112.6 fL (80-100); Monocytes Absolute Auto 300 /uL (0-900); Neutrophils Absolute Auto 2800 /uL (1500-7000); Neutrophils Percent Auto 56.6 % (50-75); Platelet Count 161 X10^3/uL (150-400); Red Blood Cell Count 2.64 X10^6/uL (4.0-5.2); Red Cell Distribution Width 24.1 % (11.6-14.8); White Blood Cell Count 4.9 X10^3/uL (4.5-11.0)
[2019-04-10 15:35] LABS: Vitamin D 25 Hydroxy (D3) 48.9 ng/mL (30.0-100.0)
[2019-04-10 16:09] LABS: Anisocytosis 3+; Polychromasia 2+
[2019-04-10 16:10] LABS: Ovalocytes 2+
[2019-04-12 17:23] LABS: Zinc 58 mcg/dL (60-130)
[2019-04-13 16:21] LABS: Alpha-Tocopherol 15.3 mg/L (5.7-19.9); Gamma-Tocopherol 2.1 mg/L (< 4.4)
[2019-04-13 16:22] LABS: Vitamin A 51 mcg/dL (38-98)
[2019-04-13 21:29] LABS: Methylmalonic Acid 255 nmol/L (87-318)
[2019-04-17 01:39] LABS: Selenium 91 mcg/L (63-160)
== END ==
PROVIDERS: PCP Family Medicine; Visit Provider Family Medicine
DX: K50.00 Crohn's disease of small intestine without complications (principal); A09 Infectious gastroenteritis and colitis, unspecified
CPT/HCPCS: 80053; 82306; 82525; 83735; 83921; 84100; 84255; 84446; 84590; 84630; 85025

== ENCOUNTER → 2019-05-31 11:00 | Oncology outpatient (ONC) | payer BC, SELFPAY ==
--- NOTE | 2019-03-14 15:27 | ONC.SCHED ---
patient brought from floor to patient room, did not stop at front desk clerk of onc for check in
--- NOTE | 2019-03-14 16:47 | ONC.CONS ---
History of Present Illness - Data of Consult Consult date: 03/14/19 Primary Care Provider: Murphy Pete MD - Consult Narrative Narrative: Diagnosis: pancytopenia History of present illness: The patient is a 38 year old female whom I was asked to see because of pancytopenia. She was notified by her home health agency that manages her TPN that her counts were very low and she should come to the emergency room. Her CBC showed a white count of 1.8, hemoglobin 4.7 hematocrit 13.6 with an MCV of 113 and a platelet count of a 120. Previously in January her white count had been 3.5 hemoglobin 10.3 hematocrit 29 and platelets [id number]. Her B12 then had been 234. Iron was 154 and ferritin 289. TIBC was 244. She did start on IV iron and B12 injections and has had a few of each. Despite this, her counts have worsened. She has fatigue with some dyspnea on exertion but denies any chest pain or dizziness or lightheadedness. She has not been aware of any unusual bleeding or bruising. She denies any epistaxis or gingival bleeding. No blood in the urine or stool. No vaginal bleeding. She was hospitalized and is being transfused. She has complicated history of Crohn's disease. She has had prior surgical resection including the terminal ileum. She has had gastro paresis. She has had chronic malnutrition and has been on TPN for the last year and a half. For her Crohn's, she has been treated with Humira, azathioprine and prednisone. She is not currently having any rectal bleeding but does have persistent abdominal pain. She notes that her blood counts have been somewhat low over the last year or so. They have been getting gradually worse but the pace of that has accelerated in the last few weeks. Prior to today, her only transfusion was following a femur fracture. She also has a history of sclerosing cholangitis. She is not sure if she has cirrhosis. She has been told that she has had splenomegaly in the past. She had an MRSA infection involving her foot and has been on vancomycin until about 3 or 4 weeks ago. Social history: She lives by herself. She does not smoke or use alcohol. She has minimal p.o. intake and is only able to sip a little bit of broth but is able to take pills orally. Family history is negative for blood dyscrasias. CC: Dutch Malloy MD Home Medications and Allergies Home Medications Medication Instructions Recorded Confirmed Type adalimumab [Humira Pen] 1 dose SUBCUT QWEEK 11/29/18 03/14/19 History alprazolam 0.5 mg PO TID 11/29/18 03/14/19 History alprazolam 1.5 mg PO BEDTIME 11/29/18 03/14/19 History azathioprine 250 mg PO DAILY 11/29/18 03/14/19 History budesonide 9 mg PO DAILY 11/29/18 03/14/19 History diphenoxylate-atropine 2 tab PO QID PRN 11/29/18 03/14/19 History epinephrine 0.3 mg IM PRN PRN 11/29/18 03/14/19 History gabapentin 1,800 mg PO BEDTIME 11/29/18 03/14/19 History gabapentin 900 mg PO BID 11/29/18 03/14/19 History ondansetron 8 mg TRANSLINGUAL QID 11/29/18 03/14/19 History oxycodone 10 mg PO 8XD 11/29/18 03/14/19 History pantoprazole 40 mg PO DAILY 11/29/18 03/14/19 History prednisone 1 mg PO DAILY 11/29/18 03/14/19 History promethazine 25 mg PO TID 11/29/18 03/14/19 History scopolamine base [Transderm-Scop] 1 patch TOPICAL Q3D 11/29/18 03/14/19 History sertraline 200 mg PO DAILY 11/29/18 03/14/19 History sumatriptan 1 spray INTRANASAL .ONCE PRN 11/29/18 03/14/19 History sumatriptan succinate 25 mg PO PRN PRN 11/29/18 03/14/19 History ursodiol 600 mg PO BID 11/29/18 03/14/19 History cyanocobalamin (vitamin B-12) 1 ml IM QWEEK 03/14/19 03/14/19 History famotidine 20 mg PO BID 03/14/19 03/14/19 History Allergies Allergy/AdvReac Type Severity Reaction Status Date / Time bee venom protein (honey bee) Allergy Verified 03/14/19 10:51 latex Allergy Verified 03/14/19 10:51 prochlorperazine AdvReac Mild Agitated Verified 03/14/19 10:51 [From Compazine] Medical History - Medical, Surgical, Family History Medical History: Medical History (Updated 03/14/19 @ 11:54 by Cathy Stanford DO) Crohns disease Surgical History: Surgical History (Updated 03/14/19 @ 11:07 by Cathy Stanford DO) History of bowel resection Hx of appendectomy - Social History Smoking Status: Former smoker Review of Systems Constitutional: weight loss, decreased activity level, decreased exercise tolerance Ears, nose, mouth, throat: no vertigo, no lightheadedness, no epistaxis Cardiovascular: dyspnea on exertion, no chest pain, no palpitations Respiratory: shortness of breath, no hemoptysis Gastrointestinal: abdominal pain, no hematemesis Integumentary: no bleeding or bruising Hematologic/Lymphatic: anemia Exam - Constitutional positive no acute distress, positive average body habitus, positive cooperative - Routine HEENT Exam Head: Present: normocephalic, atraumatic Eye: Present: EOMI, PERRL. Absent: conjunctival icterus, scleral injection ENT: Present: mucous membranes moist, oropharynx clear - Routine Neck Exam Present: supple. Absent: lymphadenopathy, thyromegaly - Routine Chest/Breast/Axilla Exam Axillae: Absent: lymphadenopathy - Routine Respiratory Exam Present: Clear to auscultation bilaterally. Absent: rales, wheezes - Routine Cardiovascular Exam Present: RRR, S1, S2. Absent: murmur - Routine Abdominal Exam Present: soft, normoactive bowel sounds. Absent: tenderness, organomegaly, mass - Routine Extremities Exam Absent: cyanosis, clubbing, edema - Routine Skin Exam Present: intact, pallor. Absent: petechiae, rash - Routine Neurological Exam Present: alert, oriented X3 - Routine Psychiatric Exam Present: normal affect, normal thought process Assessment and Plan (1) Pancytopenia Current visit: No Status: Acute A 38-year-old woman with a history of Crohn's who is been on chronic TPN. She has marked anemia and leukopenia in a relatively mild thrombocytopenia. Over the last 6 weeks, her counts have markedly worsened. There is no evidence of bleeding. She is being transfused. Her iron studies are not compatible with iron deficiency. Her B12 level was initially on the lower side but is up now after injections. Despite this there has been no improvement in her counts. It is possible that this may be drug related. Her azathioprine can suppress the marrow. It is possible that she may have an underlying marrow disease such as lymphoma or leukemia. Liver disease can cause cytopenias although usually not to this degree. Clinically she does not appear to have a high degree of liver dysfunction. We will plan on proceeding with a bone marrow biopsy to further evaluate for any intrinsic marrow abnormalities.
--- NOTE | 2019-03-14 17:00 | P.PCN_ITS ---
Date of procedure: 03/14/19 Onc Bone Marrow: bone marrow biopsy(ies) Procedure: The patient gave informed consent. She was placed in a prone position. Her left posterior iliac crest was prepped with Betadine and anesthetized with approximately 6 cc of 2% lidocaine. A small skin incision was made with a sca lpel blade. A [employer] needle was used to obtain a bone marrow core biopsy. Despite 2 attempts, no aspirate could be obtained. It was a dry tap. The patient tolerated the procedure without any complications. Samples were sent for routine histology as well as touch preps.
[2019-05-31 11:27] VITALS: BP 121/71; PULSE 62; RESP 18; TEMP 36.8; O2SAT 100
--- NOTE | 2019-05-31 11:58 | P.PNONC_ITS ---
PN -Subjective Interval history: Diagnosis: Pancytopenia Interval history: The patient is a 39-year-old woman with a complex medical history including Crohn's disease. She has been on chronic TPN. She was evaluated initially in February. At that time, she had developed significant pancytopenia with a hemoglobin of 4, platelets of a 120 and a white count of about 1.6. Her MCV was elevated. She was transfused. She had been on azathioprine at the time and has continued on 250 mg daily. She is also found to have a low B12 and started on B12 injections. Since then, her white count and platelet count have improved but she has remained anemic. She had a bone marrow biopsy done that showed a hypocellular marrow with a reduced M:E ratio some dysplastic appearing red cell and platelet precursors. There is no sign of any leukemia or lymphoma. Since her last visit here, she was hospitalized at [facility] clinic. She did have transfusion then. Her Crohn's disease has been flaring. She has been on a prednisone taper and is currently taking 60 mg daily. She continues on azathioprine at 250 mg daily. She has been getting iron infusions. She continues on TPN. She has been getting B12 injections. She denies any fevers or chills. She does have ongoing bloody diarrhea. She has not noticed any adenopathy. She denies any other changes in her health. - Patient Self-Reported Symptoms SR Constitution: Fever, Chills, Weight loss/gain, Fatigue/Malaise SR eye issues: Double vision, Eye pain SR Cardiovascular issues: Extreme swelling SR Skin issues: Dry skin, Skin rash or itching, Nail changes SR Gastrointestinal issues: Change in bowel pattern, Nausea, Vomiting, Diarrhea, Constipation, Blood in stool, Black/tarry stool, Abdominal pain, Heartburn SR Genitourinary issues: Change in stream SR Neuro issues: Headache, Lightheaded/dizzy SR Hematologic issues: Slow healing, Bleeding/bruising SR Endocrine issues: Cold intolerance, Heat intolerance Home Medications and Allergies Home Medications Medication Instructions Recorded Confirmed Type adalimumab 1 dose SUBCUT QWEEK 11/29/18 05/31/19 History alprazolam 0.5 mg PO TID 11/29/18 05/31/19 History alprazolam 1.5 mg PO BEDTIME 11/29/18 05/31/19 History budesonide 9 mg PO DAILY 11/29/18 05/31/19 History diphenoxylate-atropine 2 tab PO QID PRN 11/29/18 05/31/19 History epinephrine 0.3 mg IM PRN PRN 11/29/18 05/31/19 History gabapentin 1,800 mg PO BEDTIME 11/29/18 05/31/19 History gabapentin 900 mg PO BID 11/29/18 05/31/19 History ondansetron 8 mg TRANSLINGUAL QID 11/29/18 05/31/19 History oxycodone 10 mg PO 6XD 11/29/18 05/31/19 History pantoprazole 40 mg PO DAILY 11/29/18 05/31/19 History prednisone 1 mg PO DAILY 11/29/18 05/31/19 History promethazine 25 mg PO TID 11/29/18 05/31/19 History scopolamine base 1 patch TOPICAL Q3D 11/29/18 05/31/19 History sertraline 200 mg PO DAILY 11/29/18 05/31/19 History sumatriptan 1 spray INTRANASAL .ONCE PRN 11/29/18 05/31/19 History sumatriptan succinate 25 mg PO PRN PRN 11/29/18 05/31/19 History ursodiol 600 mg PO BID 11/29/18 05/31/19 History cyanocobalamin (vitamin B-12) 1 ml IM QWEEK 03/14/19 05/31/19 History famotidine 20 mg PO BID 03/14/19 05/31/19 History hyoscyamine sulfate 0.125 mg PO TID 05/31/19 05/31/19 History Allergies Allergy/AdvReac Type Severity Reaction Status Date / Time bee venom protein (honey bee) Allergy Verified 05/01/19 15:15 latex Allergy Verified 05/01/19 15:15 prochlorperazine AdvReac Mild Agitated Verified 05/01/19 15:15 [From Compazine] Exam Vital signs: Vital Signs Temp Pulse Resp BP Pulse Ox 05/31/19 11:27 98.2 F 62 18 121/71 100 Intake and Output 05/30/19 05/31/19 05/31/19 23:59 07:59 15:59 Other: Weight 65.6 kg Patient Weight 11/13/19 23:59 Weight 65.6 kg - Constitutional positive no acute distress, positive average body habitus Comments: She is somewhat pale. - Routine HEENT Exam Head: Present: normocephalic, atraumatic Eye: Present: EOMI, PERRL. Absent: conjunctival icterus, scleral injection ENT: Present: mucous membranes moist, oropharynx clear - Routine Neck Exam Present: supple. Absent: lymphadenopathy - Routine Respiratory Exam Present: Clear to auscultation bilaterally. Absent: rales, wheezes - Routine Cardiovascular Exam Present: RRR, S1, S2. Absent: murmur - Routine Abdominal Exam Present: soft, normoactive bowel sounds. Absent: tenderness, organomegaly, mass - Routine Extremities Exam Absent: cyanosis, clubbing, edema - Routine Back/Spine Exam Back/Spine: Absent: vertebral tenderness - Routine Skin Exam Present: intact. Absent: petechiae, rash - Routine Neurological Exam Present: alert, oriented X3 - Routine Psychiatric Exam Present: normal affect, normal thought process Assessment and Plan (1) Pancytopenia Current visit: No Status: Inactive A 38-year-old woman with a history of Crohn's who is been on chronic TPN. She has marked anemia and leukopenia in a relatively mild thrombocytopenia. Since her visit in February, she has been on B12 injections. Her white cell count and platelet count have normalized but she has continued to need red cell transfusions. Her bone marrow biopsy does not disclose any underlying malignancy. She did have some dysplastic appearing red cell and platelet precursors. The marrow was also somewhat hypocellular. I think that this could be due to her azathioprine. Could be due to her underlying Crohn's and inflammatory state as well. I do not think that any further specific treatment is needed for her blood counts currently other than to continue with iron and B12. Will just follow for now. She will return to clinic in about 3 months for follow-up.
== END ==
PROVIDERS: PCP Family Medicine
DX: D61.818 Other pancytopenia (principal); D64.9 Anemia, unspecified; D69.6 Thrombocytopenia, unspecified; D72.819 Decreased white blood cell count, unspecified; K50.90 Crohn's disease, unspecified, without complications
CPT/HCPCS: 38221; 99000; 99214